=== PATIENT | female | born 1975 | race Caucasian/White ===

== ENCOUNTER 2016-09-27 06:15 | Emergency (ER) | payer MEDICARE, OTHER ==
[~2016-09-27] VITALS: Ht 160 cm; Wt 54.0 kg
[~2016-09-27 06:15] MED LIST: CALNTAB PO; LISI-515 PO; OMEP20TA PO; VITA100T2 PO
[2016-09-27] MEDS ORDERED: CLIN1CAP5 PO (07:27)
--- NOTE | 2016-09-27 07:28 | PD ---
HPI Chief Complaint: Bite or Sting Time Seen by Provider: 07:24 Travel History International Travel<30 days: No Contact w/Intl Traveler<30days: No Traveled to known affect area: No History of Present Illness HPI 41-year-old female presents to the emergency Department with complaint of a possible bug bite to her left labia that she noticed at approximately 2 AM this morning. Denies fever, chills, nausea, vomiting. Denies dysuria, hematuria, urgency, frequency. Denies vaginal discharge, odor, itch, lesions. Denies exposure to STDs. Has not taken any medications or tried any treatments to alleviate her symptoms. Constant pain. No known relieving factors. Allergies to aspirin, doxycycline, NSAIDs, sulfa. History of hypertension. No other modifying factors or associated signs and symptoms. PFSH Past Medical History Asthma: No Anxiety: No Depression: Yes Heart Rhythm Problems: No Cancer: Yes (cervical ca) Cardiovascular Problems: No High Cholesterol: No Chemotherapy: No Chest Pain: No Congestive Heart Failure: No COPD: No Diabetes: No Endocrine: No Gastrointestinal Disorders: Yes (gerd) Genitourinary: No Hepatitis: No Hiatal Hernia: No Hypertension: Yes Immune Disorder: No Musculoskeletal: No Neurologic: No Psychiatric: No Reproductive: Yes (ENDOMETRIOSIS,FIBROIDS TUMOR) Respiratory: No Immunizations Current: No Radiation Therapy: No Sleep Apnea: No Thyroid Disease: No : 5 Para: 6 Ovarian Cysts: Yes (BEAN.) Dilation and Curettage (D&C): Yes (06/2012) Past Surgical History Abdominal Surgery: Yes (APPY) AICD: No Appendectomy: Yes Gynecologic Surgery: Yes (LAPAROSCOPIES. c section) Hysterectomy: Yes Joint Replacement: No Oral Surgery: Yes (T & A) Pacemaker: No Tonsillectomy: Yes Other Surgery: Yes (d&c,cervical ca, hysterectomy) Social History Alcohol Use: Yes (occas) Tobacco Use: Yes (1PPD) Substance Use: Yes Allergies-Medications (Allergen,Severity, Reaction): Coded Allergies: Aspirin (Verified Allergy, Severe, BLEEDING,HIVES, 06/03/16) Doxycycline (Verified Allergy, Severe, Nausea/Vomiting, 06/03/16) Nonsteroidal Anti-Inflammatory Agts (Verified Allergy, Severe, Bleeding, 06/03/16) Sulfa (Verified Allergy, Severe, BLEEDING,HIVES, 06/03/16) Reported Meds & Prescriptions Reported Meds & Active Scripts Active Clindamycin (Clindamycin HCl) 150 Mg Cap 450 Mg PO Q6H 10 Days Vitamin B-1 (Thiamine HCl) 100 Mg Tab 100 Mg PO DAILY 5 Days Reported [place] ( Vitamin) 1 Tab Tab 1 Tab PO DAILY Omeprazole 20 Mg Tab 20 Mg PO DAILY Lisinopril 20 Mg Tab 20 Mg PO DAILY Review of Systems Except as stated in HPI: all other systems reviewed are Neg Physical Exam Narrative GENERAL: Well-nourished, well-developed patient, in no acute distress; afebrile , nontoxic-appearing SKIN: There is an indurated area to the left labia majora which measures about 1.5 cm in diameter. It is fluctuant but there is no pointing or drainage. There is a zone of inflammation around it but no lymphangitis. No groin lymphadenopathy. HEAD: Atraumatic. Normocephalic. EYES: Pupils equal and round. No scleral icterus. No injection or drainage. ENT: Mucosa pink and moist. Airway patent. NECK: Trachea midline. CARDIOVASCULAR: Regular rate. RESPIRATORY: No accessory muscle use. GASTROINTESTINAL: Flat. MUSCULOSKELETAL: No obvious deformities. No clubbing. No cyanosis. No edema. NEUROLOGICAL: Awake and alert. Oriented 3. No obvious cranial nerve deficits. Motor grossly within normal limits. Normal speech. PSYCHIATRIC: Appropriate mood and affect; insight and judgment normal. Data Data Orders Lidocaine 1% Inj (50 Ml) (Xylocaine 1% I (09/27/16 07:30) Acetaminophen (Tylenol) (09/27/16 08:15) MDM Medical Decision Making Medical Screen Exam Complete: Yes Emergency Medical Condition: Yes Medical Record Reviewed: Yes Differential Diagnosis Bartholin abscess, vaginal abscess, labial abscess, folliculitis Narrative Course 41-year-old female with an abscess of the left genital labia majora. Patient is afebrile and nontoxic-appearing. See my procedure note for incision and drainage. Wound culture pending. Tylenol administered in the ER. Clindamycin prescribed for home. Instructed patient to follow up with gynecology. Patient verbalizes understanding and agreement with treatment plan. Patient is medically cleared and stable for discharge. Discussed reasons to return to the emergency department. Instructed patient to follow up with primary care provider. Patient agrees with treatment plan. The patients vital signs are stable and the patient is stable for outpatient follow-up and treatment. Patient discharged home, stable and in no acute distress. Procedures Procedure Narrative INCISION AND DRAINAGE OF ABSCESS: The area was prepped and was sterilely draped. A subcutaneous wheal of 1 % Xylocaine with a total number 2 mL was used to anesthetize the area properly. A number 11 scalpel was used to make a 0.5 -cm incision across the area of the abscess. The abscess was drained, complex loculations were broken down, and irrigated with normal saline. Cultures were obtained. Quarter inch iodoform packing was placed in the wound. Sterile dressing applied. Patient advised to have packing removed in two days. Diagnosis Primary Impression: Abscess of left genital labia Referrals: Primary Care Physician Patient Instructions: Abscess (ED), Abscess Follow-up (ED), Abscess Incision and Drainage (ED), General Instructions Departure Forms: Tests/Procedures, Work Release Enter return to work date: Sep 28, 2016 Additional Instructions: Complete full course of antibiotics Warm compresses to the affected area Keep area clean and dry Tylenol as directed and as needed for pain and inflammation Return to the emergency department, follow-up with primary care provider or follow up with cover inspector in 48 hours for packing removal Follow-up with primary care provider Return to emergency department immediately with worsening of symptoms Med/Other Pt SpecificInfo: Prescription(s) given Scripts Clindamycin 150 Mg [id number] Mg PO Q6H 10 Days Ref 0 Prov:Veronica Altamirano 09/27/16 Disposition: 01 DISCHARGE HOME Condition: Stable Veronica Altamirano Sep 27, 2016 07:28
[2016-09-27] MEDS ORDERED: LIDOCAINE HCL 1% 50 ML VIAL INFIL ONE (07:30)
[2016-09-27] MEDS ORDERED: ACETAMINOPHEN 325 MG TAB PO ONE (08:15)
[2016-09-27 08:28] VITALS: BP 148/90; PULSE 88; RESP 18; TEMP 98.2; O2SAT 97
== END 2016-09-27 08:45 | disposition home or self-care (01) ==
LOC: NEPB 06:15
DX: N76.4 Abscess of vulva (principal); B95.62 Methicillin resistant Staphylococcus aureus infection as the cause of diseases classified elsewhere
CPT/HCPCS: 10061; 86403; 87070; 87077; 87186

== ENCOUNTER 2017-02-08 02:37 | Emergency (ER) | payer MEDICARE, OTHER ==
[~2017-02-08] VITALS: Ht 160 cm; Wt 62.0 kg
[~2017-02-08 02:37] MED LIST changes: -CALNTAB PO; +CLIN1CAP5 PO; -OMEP20TA PO; -VITA100T2 PO
[2017-02-08 02:42] VITALS: BP 149/103; PULSE 98; RESP 16; TEMP 98; O2SAT 99
[2017-02-08] MEDS ORDERED: DULO20 PO (02:51)
[2017-02-08] MEDS ORDERED: diphenhydrAMINE HCL 50 MG CAP PO ONE (03:00)
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
== END 2017-02-08 03:40 | disposition home or self-care (01) ==
LOC: NEPD 02:37
DX: R20.8 Other disturbances of skin sensation (principal); I10 Essential (primary) hypertension; Z85.41 Personal history of malignant neoplasm of cervix uteri; K21.9 Gastro-esophageal reflux disease without esophagitis; F17.210 Nicotine dependence, cigarettes, uncomplicated
CPT/HCPCS: 99282

== ENCOUNTER 2017-03-12 00:30 | Emergency (ER) | payer MEDICARE, OTHER ==
[~2017-03-12] VITALS: Ht 157.5 cm; Wt 56.8 kg
[~2017-03-12 00:30] MED LIST changes: -CLIN1CAP5 PO; +DULO20 PO
[2017-03-12 00:41] VITALS: BP 166/177; PULSE 120; RESP 22; TEMP 98.7; O2SAT 100
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
[2017-03-12] MEDS ORDERED: HALOPERIDOL LACTATE 5 MG/ML AMP IV PUSH ONE (01:15)
[2017-03-12 01:54] LABS: AUTOMATED NEUTROPHIL # 5.3 TH/MM3 (1.8-7.7); BASOPHIL # 0.1 TH/MM3 (0-0.2); BASOPHIL % 1.1 % (0.0-2.0); EOSINOPHIL # 0.3 TH/MM3 (0-0.4); EOSINOPHIL % 2.9 % (0.0-4.0); HEMATOCRIT 40.3 % (35.0-46.0); HEMO FLAGS DIFF FINAL; LYMPH % 35.1 % (9.0-44.0); LYMPHOCYTE # 3.4 TH/MM3 (1.0-4.8); MEAN CELL VOLUME 95.4 FL (80.0-100.0); MEAN CORPUSCULAR HEMOGLOBIN 32.9 PG (27.0-34.0); MEAN CORPUSCULAR HGB CONC 34.5 % (32.0-36.0); MONO % 6.2 % (0.0-8.0); NEUT % 54.7 % (16.0-70.0); PLATELET COUNT 378 TH/MM3 (150-450); RED BLOOD COUNT 4.23 MIL/MM3 (4.00-5.30); RED CELL DISTRIBUTION WIDTH 12.7 % (11.6-17.2); WHITE BLOOD COUNT 9.7 TH/MM3 (4.0-11.0)
[2017-03-12 02:01] LABS: ANION GAP 9 MEQ/L (5-15); BICARBONATE 24.6 MEQ/L (21.0-32.0); BLOOD UREA NITROGEN 7 MG/DL (7-18); CHLORIDE 102 MEQ/L (98-107); GLOMERULAR FILTRATION RATE 71 ML/MIN (>89); POTASSIUM 3.2 MEQ/L (3.5-5.1); SODIUM (NA) 136 MEQ/L (136-145)
[2017-03-12 02:02] LABS: ALCOHOL LESS THAN 3 MG/DL (0-5)
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
[2017-03-12] MEDS ORDERED: POTASSIUM CHLORIDE 20 MEQ CONTROLLED RELEASE TAB PO ONE (02:45)
[2017-03-12 07:50] VITALS: BP 108/72; PULSE 86; RESP 20; TEMP 97.8; O2SAT 98
[2017-03-12 10:18] VITALS: BP 113/76; PULSE 69; RESP 16
[2017-03-12 15:48] VITALS: BP 120/80; PULSE 88; RESP 16
[2017-03-12 23:08] VITALS: BP 107/70; PULSE 101; RESP 16; TEMP 97.1; O2SAT 99
[2017-03-13 02:12] VITALS: BP 106/71; PULSE 71; RESP 16; TEMP 98.2; O2SAT 99
[2017-03-13 05:04] VITALS: BP 119/76; PULSE 66; RESP 16; TEMP 97.2; O2SAT 98
[2017-03-13 11:36] VITALS: BP 94/76; PULSE 76; RESP 18; O2SAT 99
--- NOTE | 2017-03-13 13:11 | PD ---
History of Present Illness Chief Complaint: Psychiatric Symptoms Time Seen by Provider: 13:00 Travel History International Travel<30 Days: No Contact w/Intl Traveler<30days: No Known affected area: No Legal Status Legal Status: Garcia Act Garcia Act Signed By: Lisa Duggan History of Present Illness: 41-year-old female presented under a Garcia act last night. According to the Garcia act she was making repeated 911 calls and making nonsensical statements. She talked about losing her head and being on a dirt road sleeping with other people. She also reported she wanted to turn herself in before she kills her ex -. She was rambling about a friend's boyfriend being a female. She made comments about her children being missing. Patient was noted to be positive for amphetamines and positive for cocaine on toxicology screen. She is no longer intoxicated. Her children were taken away from her due to her drug abuse. Patient lives locally and she has a home to go back to. She states she receives a check from Social Security. She has been treated at [facility] but does not want to return there and does not wish to take medications. At this time she is verbally tom for safety and states she has no suicidal or homicidal ideation, plan or intent. She is not making psychotic statements. She would like to go home and this physician does not feel she meets criteria for Garcia act or involuntary psychiatric hospitalization at this time. PFSH Past Medical History Asthma: No Anxiety: No Depression: Yes Heart Rhythm Problems: No Cancer: Yes (cervical ca) Cardiovascular Problems: Yes (HTN) High Cholesterol: No Chemotherapy: No Chest Pain: No Congestive Heart Failure: No COPD: No Diabetes: No Diminished Hearing: No Endocrine: No Gastrointestinal Disorders: Yes (gerd) Genitourinary: No Hepatitis: No Hiatal Hernia: No Hypertension: Yes Immune Disorder: No Medical other: Yes (CHR. HEADACHES DUE TO TRAUMA r eye twitching with pain) Musculoskeletal: No Neurologic: No Psychiatric: No Reproductive: Yes (ENDOMETRIOSIS,FIBROIDS TUMOR) Respiratory: No Immunizations Current: No Radiation Therapy: No Sleep Apnea: No Thyroid Disease: No Tetanus Vaccination: < 5 Years ?: Not : 5 Para: 6 Ovarian Cysts: Yes (BEAN.) Dilation and Curettage (D&C): Yes (06/2012) Past Surgical History Surgical History: No Previous Surgery Abdominal Surgery: Yes (EX LAP) AICD: No Appendectomy: Yes Gynecologic Surgery: Yes (LAPAROSCOPIES. c section) Hysterectomy: Yes Joint Replacement: No Oral Surgery: Yes (T & A) Pacemaker: No Tonsillectomy: Yes Other Surgery: Yes (d&c,cervical ca, hysterectomy) Psychiatric History Psychiatric History Hx Psychiatric Treatment: PATIENT WAS LAST ADMITTED TO [facility] FROM 05/07/16 TO 05/09/16 FOR DRUG INDUCED MOOD DISORDER. Patient's [place] problem appears to be drug abuse at this time. History of Inpatient Treatment: Yes Guns or firearms in home: No Social History Hx Alcohol Use: Yes Hx Tobacco Use: Yes Hx Substance Use: Yes Substance Use Type: Amphetamines-Stimulants, Cocaine Hx of Substance Use Treatment: Yes Allergies-Medications (Allergen,Severity, Reaction): Coded Allergies: Sulfa (Sulfonamide Antibiotics) (Unverified Allergy, Severe, BLEEDING, HIVES, 02/14/17) aspirin (Unverified Allergy, Severe, BLEEDING,HIVES, 02/14/17) diclofenac (Unverified Allergy, Severe, Bleeding, 02/14/17) doxycycline (Unverified Allergy, Severe, Nausea/Vomiting, 02/14/17) etodolac (Unverified Allergy, Severe, Bleeding, 02/14/17) flurbiprofen (Unverified Allergy, Severe, Bleeding, 02/14/17) ibuprofen (Unverified Allergy, Severe, Bleeding, 02/14/17) indomethacin (Unverified Allergy, Severe, Bleeding, 02/14/17) ketoprofen (Unverified Allergy, Severe, Bleeding, 02/14/17) ketorolac (Unverified Allergy, Severe, Bleeding, 02/14/17) naproxen (Unverified Allergy, Severe, Bleeding, 02/14/17) oxaprozin (Unverified Allergy, Severe, Bleeding, 02/14/17) *MDRO Multi-Drug Resistant Organism (Verified Adverse Reaction, Unknown, ) 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 Reported Meds & Prescriptions Reported Meds & Active Scripts Active Reported Cymbalta DR (Duloxetine HCl) 20 Mg Capdr 20 Mg PO DAILY Lisinopril 20 Mg Tab 20 Mg PO DAILY Review of Systems Except as stated in HPI: all other systems reviewed are Neg Exam Alert: Yes [place]: Person, Place, Date, Situation Mood: Calm Affect: Appropriate Speech: Clear, Logical, Fast Eye Contact: Normal Memory Intact: Immediate, Recent, Remote Insight/Judgement Adequate MDM Medical Decision Making Medical Record Reviewed: Yes Assessment/Plan Patient seen at bedside, medical record reviewed and case discussed with nurse. At this time the patient does not show significant objective clinical signs of psychosis. She is most likely not intoxicated at this point. She is verbally tom for safety and denies any homicidal or suicidal ideation, plan or intent. She has a place to go home to and she does not qualify for Garcia act or involuntary hospitalization in my opinion. She would like to return to her home. She was given a referral to [facility] for drug abuse. Orders Orders Diet Regular Basic (03/13/17 Breakfast) Diet Regular Basic (03/13/17 Lunch) Diet Regular Basic (03/13/17 Dinner) Results Vital Signs Date Time Temp Pulse Resp B/P (MAP) Pulse Ox O2 Delivery O2 Flow Rate FiO2 03/13/17 11:36 76 18 94/76 (82) 99 Room Air 03/13/17 05:04 97.2 66 16 119/76 (90) 98 Room Air 03/13/17 02:12 98.2 71 16 106/71 (83) 99 Room Air 03/12/17 23:08 97.1 101 16 107/70 (82) 99 Room Air 03/12/17 15:48 88 16 120/80 (93) Diagnosis Primary Impression: Cocaine abuse Condition: Stable Severiano Conley MD Mar 13, 2017 13:11
--- NOTE | 2017-03-13 13:29 | PD ---
Physical Exam Time Seen by Provider: 13:[address] Conley has evaluated this patient, which the Garcia act and the patient will be discharged home. Data Data Last Documented VS Vital Signs Date Time Temp Pulse Resp B/P (MAP) Pulse Ox O2 Delivery O2 Flow Rate FiO2 03/13/17 11:36 76 18 94/76 (82) 99 Room Air 03/13/17 05:04 97.2 Orders Orders Complete Blood Count With Diff (03/12/17 00:46) Basic Metabolic Panel (Bmp) (03/12/17 00:46) Psych Screen (03/12/17 00:46) Drug Screen, Random Urine (03/12/17 00:46) Alcohol (Ethanol) (03/12/17 00:46) Ed Urine Pregnancytest Poc (03/12/17 01:08) Iv Access Insert/Monitor (03/12/17 01:08) Haloperidol Inj (Haldol Inj) (03/12/17 01:15) Potassium Chloride (Kcl) (03/12/17 02:45) Diet Regular Basic (03/12/17 Breakfast) Diet Regular Basic (03/12/17 Lunch) Diet Regular Basic (03/12/17 Dinner) Diet Regular Basic (03/13/17 Breakfast) Diet Regular Basic (03/13/17 Lunch) Diet Regular Basic (03/13/17 Dinner) Labs Laboratory Tests Test 03/12/17 01:00 03/12/17 01:10 Urine Opiates Screen NEG Urine Barbiturates Screen NEG Urine Amphetamines Screen POS Urine Benzodiazepines Screen NEG Urine Cocaine Screen POS Urine Cannabinoids Screen NEG White Blood Count 9.7 TH/MM3 Red Blood Count 4.23 MIL/MM3 Hemoglobin 13.9 GM/DL Hematocrit 40.3 % Mean Corpuscular Volume 95.4 FL Mean Corpuscular Hemoglobin 32.9 PG Mean Corpuscular Hemoglobin Concent 34.5 % Red Cell Distribution Width 12.7 % Platelet Count 378 TH/MM3 Mean Platelet Volume 6.6 FL Neutrophils (%) (Auto) 54.7 % Lymphocytes (%) (Auto) 35.1 % Monocytes (%) (Auto) 6.2 % Eosinophils (%) (Auto) 2.9 % Basophils (%) (Auto) 1.1 % Neutrophils # (Auto) 5.3 TH/MM3 Lymphocytes # (Auto) 3.4 TH/MM3 Monocytes # (Auto) 0.6 TH/MM3 Eosinophils # (Auto) 0.3 TH/MM3 Basophils # (Auto) 0.1 TH/MM3 CBC Comment DIFF FINAL Differential Comment Blood Urea Nitrogen 7 MG/DL Creatinine 0.89 MG/DL Random Glucose 129 MG/DL Calcium Level 9.2 MG/DL Sodium Level 136 MEQ/L Potassium Level 3.2 MEQ/L Chloride Level 102 MEQ/L Carbon Dioxide Level 24.6 MEQ/L Anion Gap 9 MEQ/L Estimat Glomerular Filtration Rate 71 ML/MIN Ethyl Alcohol Level LESS THAN 3 MG/DL MDM Supervised Visit with [place]: No Narrative Course Dr. Conley has evaluated this patient, which the Garcia act and the patient will be discharged home. Patient contract safety. Denies suicidal or homicidal ideations. The patient be provided information to follow up with [facility] outpatient. Patient has friends and family for support. Patient is medically cleared for discharge. Diagnosis Primary Impression: Cocaine abuse Referrals: Primary Care Physician Patient Instructions: Cocaine Abuse (ED), General Instructions Additional Instruction: Contract safety to your self and others Stop using cocaine Follow-up with psychiatry Follow-up with primary care provider Follow-up with [facility] Return to the emergency department immediately with worsening of symptoms Med/Other Pt SpecificInfo: No Meds Exist/No RX given Disposition: 01 DISCHARGE HOME Condition: Stable Veronica Altamirano Mar 13, 2017 13:29
== END 2017-03-13 14:45 | disposition home or self-care (01) ==
LOC: NEPD 00:30 → NEPJ 03-13 14:45
DX: F14.159 Cocaine abuse with cocaine-induced psychotic disorder, unspecified (principal); F15.959 Other stimulant use, unspecified with stimulant-induced psychotic disorder, unspecified; I10 Essential (primary) hypertension; Z72.0 Tobacco use; Z79.899 Other long term (current) drug therapy
CPT/HCPCS: 80048; 80307; 84703; 85025; 96374; 99284; J1630

== ENCOUNTER 2017-06-09 10:00 | Emergency (ER) | payer MEDICARE, MEDICAID ==
[~2017-06-09] VITALS: Ht 157.5 cm; Wt 63.0 kg
[2017-06-09 10:01] VITALS: BP 143/86; PULSE 105; RESP 20; TEMP 99; O2SAT 99
[2017-06-09] MEDS ORDERED: SODIUM CHLOR 0.9% 1000 ML INJ 1,000 ML IV SCH (10:27)
[2017-06-09] MEDS ORDERED: SODIUM CHLOR 0.9% 1000 ML INJ 1,000 ML IV ONE (10:30)
[2017-06-09] MEDS ORDERED: ONDANSETRON HCL 4 MG/2 ML VIAL IVP ONE (10:30)
[2017-06-09] MEDS ORDERED: SODIUM CHLORIDE 0.9% FLUSH 10 ML FLUSH IVF PRN (10:30)
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
[2017-06-09] MEDS ORDERED: DEXAMETHASONE SOD PHOS 20 MG/5 ML VIAL IV PUSH ONE (10:45)
--- NOTE | 2017-06-09 11:04 | RADRPT ---
EXAM DATE/TIME: 06/09/2017 10:38 [facility] COMPARISON: CHEST SINGLE AP, May 06, 2016, 11:04. INDICATIONS : Cough and chest pain x 4 days. MEDICAL HISTORY : SURGICAL HISTORY : Hysterectomy. ENCOUNTER: Initial ACUITY: 1 day PAIN SCORE: 6/10 LOCATION: Bilateral chest FINDINGS: Portable AP view of the chest demonstrates a normal-sized cardiac silhouette. No effusion, consolidat ion, or pneumothorax is visualized. The bones and soft tissues demonstrate no acute abnormality. CONCLUSION: No acute cardiopulmonary abnormality is identified. Marcel Casillas MD on June 09, 2017 at 11:01 Board Certified Radiologist. This report was verified electronically.
[2017-06-09 11:10] LABS: BASOPHIL # 0.1 TH/MM3 (0-0.2); BASOPHIL % 0.4 % (0.0-2.0); EOSINOPHIL # 0.1 TH/MM3 (0-0.4); EOSINOPHIL % 0.8 % (0.0-4.0); HEMATOCRIT 38.1 % (35.0-46.0); HEMO FLAGS DIFF FINAL; LYMPH % 13.5 % (9.0-44.0); LYMPHOCYTE # 2.1 TH/MM3 (1.0-4.8); MEAN CELL VOLUME 96.3 FL (80.0-100.0); MEAN CORPUSCULAR HEMOGLOBIN 33.7 PG (27.0-34.0); MONO % 6.7 % (0.0-8.0); NEUT % 78.6 % (16.0-70.0); PLATELET COUNT 295 TH/MM3 (150-450); RED BLOOD COUNT 3.96 MIL/MM3 (4.00-5.30); WHITE BLOOD COUNT 15.2 TH/MM3 (4.0-11.0)
[2017-06-09 11:19] VITALS: O2SAT 100
[2017-06-09 11:24] LABS: BICARBONATE 28.9 MEQ/L (21.0-32.0); POTASSIUM 3.3 MEQ/L (3.5-5.1)
[2017-06-09 11:59] VITALS: BP 129/86; PULSE 92; RESP 17; O2SAT 100
[2017-06-09 11:59] LABS: BLOOD, URINE NEG (NEG); COMMENT (UR) CULT NOT INDICATED; CULTURE IF INDICATED CULT NOT INDICATED; GLUCOSE,URINE 70 mg/dL (NEG); HYALINE CAST, URINE 2 /lpf (RARE); KETONE, URINE NEG (NEG); MUCUS URINE MANY /lpf (OCC); NITRITE,URINE NEG (NEG); PH, URINE 6.5 (5.0-8.5); SQUAMOUS EPITHELIAL CELL URINE 1 /hpf (0-5); URINE COLOR YELLOW (YELLW/STRAW)
[2017-06-09] MEDS ORDERED: POTASSIUM CHLORIDE 10 MEQ CONTROLLED RELEASE TAB PO ONE (12:45)
--- NOTE | 2017-06-09 14:20 | EKG ---
Date Performed: 06/09/2017 Time Performed: 11:06:37 PTAGE: 42 years EKG: Sinus rhythm NORMAL ECG No significant change from prior electrocardiogram. PREVIOUS TRACING : 05/06/2016 05.30 DOCTOR: Andrew Matias Interpretating Date/Time 06/09/2017 14:19:25
== END 2017-06-09 13:17 | disposition home or self-care (01) ==
LOC: NEPD 10:00
DX: B34.9 Viral infection, unspecified (principal); I10 Essential (primary) hypertension; K21.9 Gastro-esophageal reflux disease without esophagitis; F32.9 Major depressive disorder, single episode, unspecified; F17.200 Nicotine dependence, unspecified, uncomplicated; Z88.2 Allergy status to sulfonamides; Z86.19 Personal history of other infectious and parasitic diseases; Z88.6 Allergy status to analgesic agent; Z88.8 Allergy status to other drugs, medicaments and biological substances
CPT/HCPCS: 71010; 80048; 81001; 85025; 87804; 93005; 96361; 96374; 96375; 99285; J1100; J2405; J7030

== ENCOUNTER 2017-06-25 16:32 | Emergency (ER) | payer MEDICARE, MEDICAID ==
[2017-06-25 16:40] VITALS: BP 157/101; PULSE 130; RESP 20; TEMP 98.2; O2SAT 100
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
== END 2017-06-25 18:25 | disposition home or self-care (01) ==
LOC: NEPD 16:32
DX: Z00.00 Encounter for general adult medical examination without abnormal findings (principal)
CPT/HCPCS: 99283

== ENCOUNTER 2017-09-05 20:13 | Emergency (ER) | payer MEDICARE, OTHER ==
[2017-09-05] MEDS ORDERED: LORazepam 2 MG/ML VIAL IM ONE (20:45)
[2017-09-05] MEDS ORDERED: HALOPERIDOL LACTATE 5 MG/ML AMP IM ONE (20:45)
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
[2017-09-05 20:54] VITALS: BP 185/117; PULSE 112; RESP 16; TEMP 98.8; O2SAT 100
[2017-09-05 22:08] LABS: BASOPHIL # 0.1 TH/MM3 (0-0.2); BASOPHIL % 1.3 % (0.0-2.0); EOSINOPHIL # 0.2 TH/MM3 (0-0.4); EOSINOPHIL % 2.2 % (0.0-4.0); HEMATOCRIT 42.1 % (35.0-46.0); HEMOGLOBIN 15.1 GM/DL (11.6-15.3); LYMPH % 34.7 % (9.0-44.0); LYMPHOCYTE # 3.2 TH/MM3 (1.0-4.8); MEAN CELL VOLUME 92.6 FL (80.0-100.0); MEAN CORPUSCULAR HEMOGLOBIN 33.3 PG (27.0-34.0); MEAN CORPUSCULAR HGB CONC 35.9 % (32.0-36.0); MEAN PLATELET VOLUME 7.1 FL (7.0-11.0); MONO % 6.6 % (0.0-8.0); MONOCYTE # 0.6 TH/MM3 (0-0.9); NEUT % 55.2 % (16.0-70.0); PLATELET COUNT 400 TH/MM3 (150-450); RED BLOOD COUNT 4.55 MIL/MM3 (4.00-5.30); RED CELL DISTRIBUTION WIDTH 12.8 % (11.6-17.2); WHITE BLOOD COUNT 9.1 TH/MM3 (4.0-11.0)
[2017-09-05 22:20] LABS: ALBUMIN 4.4 GM/DL (3.4-5.0); AST (GOT) 67 U/L (15-37); BICARBONATE 26.9 MEQ/L (21.0-32.0); BLOOD UREA NITROGEN 13 MG/DL (7-18); CALCIUM 9.3 MG/DL (8.5-10.1); CHLORIDE 101 MEQ/L (98-107); CREATININE 0.92 MG/DL (0.50-1.00); GLOMERULAR FILTRATION RATE 68 ML/MIN (>89); GLUCOSE,RANDOM 88 MG/DL (74-106); SODIUM (NA) 140 MEQ/L (136-145)
[2017-09-05 22:21] LABS: ALT (GPT) 82 U/L (10-53)
[2017-09-05 22:31] LABS: ALKALINE PHOSPHATASE 117 U/L (45-117); TOTAL BILIRUBIN ADULT 0.6 MG/DL (0.2-1.0); TOTAL PROTEIN 8.4 GM/DL (6.4-8.2)
[2017-09-05] MEDS ORDERED: POTASSIUM CHLORIDE 20 MEQ CONTROLLED RELEASE TAB PO ONE (23:15)
[2017-09-06 02:32] VITALS: BP 100/55; PULSE 75; RESP 18; O2SAT 96
[2017-09-06 10:28] VITALS: BP 117/77; PULSE 71; RESP 16; O2SAT 98
--- NOTE | 2017-09-06 15:03 | PD.PSY.CON ---
Provisional Diagnosis Admission Date Date of consultation 09/06/2017 [place] I. 1. Amphetamine abuse with intoxication, intoxication now resolved [place] II. Deferred History of Present Illness Service Psychiatry Consult Requested By Emergency department Reason for Consult Garcia act Primary Care Physician Unknown HPI Ms. Mcmullen is a 42-year-old female with a history of substance use issues who presents under a Garcia act by law enforcement alleging that the patient told officers that she heard the screams of her daughters and was searching for them. Apparently, at one point the patient told the officers that she wanted "to jump off a bridge to kill myself." Of note, the patient's urine toxicology was positive for amphetamines on presentation here. Patient was apparently somewhat agitated in her acutely intoxicated state and was medicated overnight with Haldol and Ativan IM. Reviewing the electronic medical record, I note that the patient was seen most recently in consultation by Dr. Conley last March with a diagnosis of cocaine abuse. Patient seen and examined. Chart reviewed. Case discussed with nursing staff. There has been no evidence of any suicidality or homicidality while the patient has been under observation in the J pod. On my examination this afternoon, the patient is clinically sober. She denies any suicidal or homicidal ideation, intent or plan and contracts for safety. Mood is "fine" and affect is somewhat dysphoric but not severely depressed. No depressive or hypomanic/manic symptoms in evidence. She denies any audiovisual hallucinations. I can elicit no delusional material. There is no evidence of any impairment in reality construction at this point. The remainder of the psychiatric ROS is negative. The patient has no physical complaints. She is requesting discharge from the emergency room this afternoon. Past psychiatric history: The patient has a history of substance abuse issues. She is not presently under the care of an outpatient psychiatrist but is agreeable to accepting a referral today for outpatient psychiatric services. Her most recent psychiatric admission was here at [facility] last year. She reports 1 previous suicide attempt by overdose on pills. Family history: Patient reports that she is unsure of her family psychiatric history. Chemical dependency history: Patient reports that she uses methamphetamine daily. No other substance use reported presently although the patient has a previous diagnosis of cocaine abuse. Social history: Patient lives in a motel. She is single with no children. Highest level of education is escobar in high school. Not presently working. Denies any history. Denies any legal history. Denies any access to guns or firearms. No particular mormonism or spiritual beliefs. Review of Systems Except as stated in HPI: all other systems reviewed are Neg Past Family Social History Coded Allergies: Sulfa (Sulfonamide Antibiotics) (Unverified Allergy, Severe, BLEEDING, HIVES, 09/05/17) aspirin (Unverified Allergy, Severe, BLEEDING,HIVES, 09/05/17) diclofenac (Unverified Allergy, Severe, Bleeding, 09/05/17) doxycycline (Unverified Allergy, Severe, Nausea/Vomiting, 09/05/17) etodolac (Unverified Allergy, Severe, Bleeding, 09/05/17) flurbiprofen (Unverified Allergy, Severe, Bleeding, 09/05/17) ibuprofen (Unverified Allergy, Severe, Bleeding, 09/05/17) indomethacin (Unverified Allergy, Severe, Bleeding, 09/05/17) ketoprofen (Unverified Allergy, Severe, Bleeding, 09/05/17) ketorolac (Unverified Allergy, Severe, Bleeding, 09/05/17) naproxen (Unverified Allergy, Severe, Bleeding, 09/05/17) oxaprozin (Unverified Allergy, Severe, Bleeding, 09/05/17) *MDRO Multi-Drug Resistant Organism (Verified Adverse Reaction, Unknown, ) 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 Past Medical History See electronic medical record No Active Prescriptions or Reported Meds Patient's Strengths (min. 2) Able to access clinical care. Verbally fluent. Physical Exam Physical exam completed by ED provider. On my examination today, the patient appears to be in no acute physical distress. No motor abnormalities noted. No signs of intoxication or withdrawal noted. Labs and vitals reviewed: Vital Signs Vital Signs Date Time Temp Pulse Resp B/P (MAP) Pulse Ox O2 Delivery O2 Flow Rate FiO2 09/06/17 10:28 71 16 117/77 (90) 98 Room Air 09/05/17 20:54 98.8 Lab Results Test 09/05/17 21:25 White Blood Count 9.1 TH/MM3 Red Blood Count 4.55 MIL/MM3 Hemoglobin 15.1 GM/DL Hematocrit 42.1 % Mean Corpuscular Volume 92.6 FL Mean Corpuscular Hemoglobin 33.3 PG Mean Corpuscular Hemoglobin Concent 35.9 % Red Cell Distribution Width 12.8 % Platelet Count 400 TH/MM3 Mean Platelet Volume 7.1 FL Neutrophils (%) (Auto) 55.2 % Lymphocytes (%) (Auto) 34.7 % Monocytes (%) (Auto) 6.6 % Eosinophils (%) (Auto) 2.2 % Basophils (%) (Auto) 1.3 % Neutrophils # (Auto) 5.0 TH/MM3 Lymphocytes # (Auto) 3.2 TH/MM3 Monocytes # (Auto) 0.6 TH/MM3 Eosinophils # (Auto) 0.2 TH/MM3 Basophils # (Auto) 0.1 TH/MM3 CBC Comment DIFF FINAL Differential Comment Blood Urea Nitrogen 13 MG/DL Creatinine 0.92 MG/DL Random Glucose 88 MG/DL Total Protein 8.4 GM/DL Albumin 4.4 GM/DL Calcium Level 9.3 MG/DL Alkaline Phosphatase 117 U/L Aspartate Amino Transf (AST/SGOT) 67 U/L Alanine Aminotransferase (ALT/SGPT) 82 U/L Total Bilirubin 0.6 MG/DL Sodium Level 140 MEQ/L Potassium Level 3.1 MEQ/L Chloride Level 101 MEQ/L Carbon Dioxide Level 26.9 MEQ/L Anion Gap 12 MEQ/L Estimat Glomerular Filtration Rate 68 ML/MIN Thyroid Stimulating Hormone 3rd Gen 1.910 uIU/ML Urine Opiates Screen NEG Urine Barbiturates Screen NEG Urine Amphetamines Screen POS Urine Benzodiazepines Screen NEG Urine Cocaine Screen NEG Urine Cannabinoids Screen NEG Ethyl Alcohol Level LESS THAN 3 MG/DL Mental Status Examination Appearance: Disheveled (Maintaining basic hygiene) Consciousness: Alert Orientation: x4 Motor Activity: Other (No motor abnormalities noted) Speech: Unremarkable Language: Adequate Fund of Knowledge: Adequate Attention and Concentration: Adequate Memory: Unremarkable Mood: Appropriate ("fine") Affect: Appropriate (mildly dysphoric) Thought Process & Associations: Intact, Logical, Goal directed, Linear Thought Content: Appropriate Hallucination Type: None Delusion Type: None Suicidal Ideation: No Suicidal Plan: No Suicidal Intention: No Homicidal Ideation: No Homicidal Plan: No Homicidal Intention: No Mental Status Exam Remarks Insight and judgment are likely chronically fair to poor Assessment & Plan Problem List: (1) Amphetamine abuse ICD Codes: F15.10 - Other stimulant abuse, uncomplicated Assessment & Plan 42-year-old female with psychiatric history as detailed above who presents under Garcia act from law enforcement. Patient was intoxicated with methamphetamine yesterday, and report in the Garcia act is reflective of the intoxicated state. Now that she is clinically sober, she is denying suicidal or homicidal ideation. She is tom for safety. There is no evidence of any psychosis. There is no evidence of any severe self-care deficit. There is no evidence of any mental illness as defined under the Garcia act. Patient does have substance use issues. Synthesizing this information, I hardwood sawyer that the patient does not presently meet the Garcia act criteria. I have lifted the Garcia act. Patient is psychiatrically clear for discharge from the emergency department. I have instructed the nurse to provide the patient with outpatient mental health and chemical dependency referral. I have recommended to the patient that she follow up with outpatient mental health and chemical dependency resources. I have counseled the patient to abstain from substances of abuse. I have counseled the patient regarding warning signs for need to return to the psychiatric emergency room as part of a general safety plan. Thank you very much for this consultation. Request Surrog/Guard Advoc?: No Kings Chaudhry MD Sep 06, 2017 15:03
--- NOTE | 2017-09-06 15:30 | PD ---
Physical Exam Time Seen by Provider: 15:[address] Cooper has evaluated the patient, sariahed Radha acted cleared the patient for discharge. Data Data Last Documented VS Vital Signs Date Time Temp Pulse Resp B/P (MAP) Pulse Ox O2 Delivery O2 Flow Rate FiO2 09/06/17 10:28 71 16 117/77 (90) 98 Room Air 09/05/17 20:54 98.8 Orders Orders Complete Blood Count With Diff (09/05/17 20:45) Comprehensive Metabolic Panel (09/05/17 20:45) Thyroid Stimulating Hormone (09/05/17 20:45) Psych Screen (09/05/17 20:45) Haloperidol Inj (Haldol Inj) (09/05/17 20:45) Lorazepam Inj (Ativan Inj) (09/05/17 20:45) Drug Screen, Random Urine (09/05/17 20:45) Alcohol (Ethanol) (09/05/17 20:45) Potassium Chloride (Kcl) (09/05/17 23:15) Diet Regular Basic (09/06/17 Breakfast) Diet Regular Basic (09/06/17 Lunch) Labs Laboratory Tests Test 09/05/17 21:25 White Blood Count 9.1 TH/MM3 Red Blood Count 4.55 MIL/MM3 Hemoglobin 15.1 GM/DL Hematocrit 42.1 % Mean Corpuscular Volume 92.6 FL Mean Corpuscular Hemoglobin 33.3 PG Mean Corpuscular Hemoglobin Concent 35.9 % Red Cell Distribution Width 12.8 % Platelet Count 400 TH/MM3 Mean Platelet Volume 7.1 FL Neutrophils (%) (Auto) 55.2 % Lymphocytes (%) (Auto) 34.7 % Monocytes (%) (Auto) 6.6 % Eosinophils (%) (Auto) 2.2 % Basophils (%) (Auto) 1.3 % Neutrophils # (Auto) 5.0 TH/MM3 Lymphocytes # (Auto) 3.2 TH/MM3 Monocytes # (Auto) 0.6 TH/MM3 Eosinophils # (Auto) 0.2 TH/MM3 Basophils # (Auto) 0.1 TH/MM3 CBC Comment DIFF FINAL Differential Comment Blood Urea Nitrogen 13 MG/DL Creatinine 0.92 MG/DL Random Glucose 88 MG/DL Total Protein 8.4 GM/DL Albumin 4.4 GM/DL Calcium Level 9.3 MG/DL Alkaline Phosphatase 117 U/L Aspartate Amino Transf (AST/SGOT) 67 U/L Alanine Aminotransferase (ALT/SGPT) 82 U/L Total Bilirubin 0.6 MG/DL Sodium Level 140 MEQ/L Potassium Level 3.1 MEQ/L Chloride Level 101 MEQ/L Carbon Dioxide Level 26.9 MEQ/L Anion Gap 12 MEQ/L Estimat Glomerular Filtration Rate 68 ML/MIN Thyroid Stimulating Hormone 3rd Gen 1.910 uIU/ML Urine Opiates Screen NEG Urine Barbiturates Screen NEG Urine Amphetamines Screen POS Urine Benzodiazepines Screen NEG Urine Cocaine Screen NEG Urine Cannabinoids Screen NEG Ethyl Alcohol Level LESS THAN 3 MG/DL MDM Supervised Visit with [facility]: No Narrative Course Dr. Cooper has evaluated the patient, precious Garcia acted cleared the patient for discharge. Patient contracts safety. Denies suicidal or homicidal ideations. Patient will be provided community resource packet to /[facility] for follow-up. Has friends and family for support. Patient was medically cleared by alternate provider prior to psych screening. Patient has been evaluated by psychiatry and and is now cleared for discharge. Diagnosis Primary Impression: Amphetamine abuse Referrals: [facility] (Out patient) [facility] Primary Care Physician Psychiatrist Atilio [facility] Patient Instructions: General Instructions, Polysubstance Abuse (ED) Additional Instruction: Contract safety to your self and others Stop using drugs Follow-up with psychiatry Follow-up with primary care provider Follow-up with [facility] ePr[facility] Return to the emergency department immediately with worsening of symptoms Med/Other Pt SpecificInfo: No Change to Meds, No Meds Exist/No RX given Scripts No Active Prescriptions or Reported Meds Disposition: 01 DISCHARGE HOME Condition: Stable Veronica Altamirano Sep 06, 2017 15:30
== END 2017-09-06 16:03 | disposition home or self-care (01) ==
LOC: NEPD 20:13 → NEPJ 09-06 16:03
DX: F15.10 Other stimulant abuse, uncomplicated (principal); F17.200 Nicotine dependence, unspecified, uncomplicated
CPT/HCPCS: 80053; 80307; 84443; 85025; 96372; 99283; J1630; J2060

== ENCOUNTER 2017-09-14 11:00 | Emergency (ER) | payer MEDICARE, OTHER ==
[~2017-09-14] VITALS: Ht 154.9 cm; Wt 60.0 kg
[2017-09-14 11:09] VITALS: BP_SYST 172; BP_DIAS 105; BP_DIAS 90; PULSE 90; RESP 18; TEMP 98.7; O2SAT 100
--- NOTE | 2017-09-14 11:43 | PD ---
HPI Chief Complaint: Syncope/Near-Syncope Time Seen by Provider: 11:34 Travel History International Travel<30 days: No Contact w/Intl Traveler<30days: No History of Present Illness HPI 42-year-old female complains of dizziness. Patient states that dizziness started this morning. Patient denies any headache. Patient denies any visual change. Patient denies any neck pain. Patient denies any chest pain or shortness of breath. Patient denies abdominal pain. Patient denies any focal weakness or numbness of the extremity. Patient has history of substance abuse in the past. Patient denies any fever chills. Patient denies any coughing congestion. Patient denies nausea vomiting diarrhea. Patient denies any dysuria frequency. PFSH Past Medical History Asthma: No Anxiety: No Depression: Yes Heart Rhythm Problems: No Cancer: Yes (cervical ca) Cardiovascular Problems: Yes (HTN) High Cholesterol: No Chemotherapy: No Chest Pain: No Congestive Heart Failure: No COPD: No Diabetes: No Diminished Hearing: No Endocrine: No Gastrointestinal Disorders: Yes (gerd) Genitourinary: No Hepatitis: Yes (b and c) Hiatal Hernia: No Hypertension: Yes Immune Disorder: No Medical other: Yes (CHR. HEADACHES DUE TO TRAUMA r eye twitching with pain) Musculoskeletal: No Neurologic: No Psychiatric: No Reproductive: Yes (ENDOMETRIOSIS,FIBROIDS TUMOR) Respiratory: No Immunizations Current: No Radiation Therapy: No Sleep Apnea: No Thyroid Disease: No ?: Not : 5 Para: 6 Ovarian Cysts: Yes (BEAN.) Dilation and Curettage (D&C): Yes (06/2012) Past Surgical History Abdominal Surgery: Yes (EX LAP) AICD: No Appendectomy: Yes Section: Yes Gynecologic Surgery: Yes (LAPAROSCOPIES. c section) Hysterectomy: Yes Joint Replacement: No Oral Surgery: Yes (T & A) Pacemaker: No Tonsillectomy: Yes Other Surgery: Yes (d&c,cervical ca, hysterectomy) Social History Alcohol Use: No Tobacco Use: Yes (07/06 ppd) Substance Use: Yes (ADDERALL, COCAINE, METH ) Allergies-Medications (Allergen,Severity, Reaction): Coded Allergies: Sulfa (Sulfonamide Antibiotics) (Unverified Allergy, Severe, BLEEDING, HIVES, 09/05/17) aspirin (Unverified Allergy, Severe, BLEEDING,HIVES, 09/05/17) diclofenac (Unverified Allergy, Severe, Bleeding, 09/05/17) doxycycline (Unverified Allergy, Severe, Nausea/Vomiting, 09/05/17) etodolac (Unverified Allergy, Severe, Bleeding, 09/05/17) flurbiprofen (Unverified Allergy, Severe, Bleeding, 09/05/17) ibuprofen (Unverified Allergy, Severe, Bleeding, 09/05/17) indomethacin (Unverified Allergy, Severe, Bleeding, 09/05/17) ketoprofen (Unverified Allergy, Severe, Bleeding, 09/05/17) ketorolac (Unverified Allergy, Severe, Bleeding, 09/05/17) naproxen (Unverified Allergy, Severe, Bleeding, 09/05/17) oxaprozin (Unverified Allergy, Severe, Bleeding, 09/05/17) *MDRO Multi-Drug Resistant Organism (Verified Adverse Reaction, Unknown, ) 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 Reported Meds & Prescriptions Reported Meds & Active Scripts Active No Active Prescriptions or Reported Medications Review of Systems General / Constitutional: No: Fever Eyes: No: Visual changes HENT: Positive: Lightheadedness, No: Headaches Cardiovascular: No: Chest Pain or Discomfort Respiratory: No: Shortness of Breath Gastrointestinal: No: Abdominal Pain Genitourinary: No: Dysuria Musculoskeletal: No: Pain Skin: No Rash Neurologic: No: Weakness Psychiatric: No: Depression Endocrine: No: Polydipsia Hematologic/Lymphatic: No: Easy Bruising Physical Exam Narrative GENERAL: Well-nourished, well-developed patient. SKIN: Focused skin assessment warm/dry. HEAD: Normocephalic. EYES: No scleral icterus. No injection or drainage. Pupils 2 mm equal reactive. NECK: Supple, trachea midline. No JVD or lymphadenopathy. CARDIOVASCULAR: Regular rate and rhythm without murmurs, gallops, or rubs. RESPIRATORY: Breath sounds equal bilaterally. No accessory muscle use. GASTROINTESTINAL: Abdomen soft, non-tender, nondistended. MUSCULOSKELETAL: No cyanosis, or edema. BACK: Nontender without obvious deformity. No CVA tenderness. Neurologic exam: Patient is awake and alert oriented 3. Patient moves all extremity well. No obvious focal neurological deficit. Data Data Last Documented VS Vital Signs Date Time Temp Pulse Resp B/P (MAP) Pulse Ox O2 Delivery O2 Flow Rate FiO2 09/14/17 11:09 98.7 90 18 172/90 (117) 100 Orders Orders Ed Discharge Order (09/14/17 11:43) MDM Medical Decision Making Medical Screen Exam Complete: Yes Emergency Medical Condition: Yes Differential Diagnosis Differential diagnosis including vertigo, viral syndrome, substance abuse. Narrative Course 42-year-old female complains of dizziness. Physical exam benign. No acute emergency condition. Vital signs stable. Diagnosis Primary Impression: Dizziness, nonspecific Patient Instructions: General Instructions Additional Instructions: Patient is medically cleared for discharged in the custody of master police detective. Scripts No Active Prescriptions or Reported Meds Disposition: [address] LAW ENFORCEMNT Condition: Stable Kyle Lynch MD Sep 14, 2017 11:43
== END 2017-09-14 12:05 ==
LOC: NEPD 11:00
DX: R42 Dizziness and giddiness (principal); F32.9 Major depressive disorder, single episode, unspecified; I10 Essential (primary) hypertension; K21.9 Gastro-esophageal reflux disease without esophagitis; Z86.19 Personal history of other infectious and parasitic diseases; F17.200 Nicotine dependence, unspecified, uncomplicated; F15.21 Other stimulant dependence, in remission; F14.21 Cocaine dependence, in remission; Z88.2 Allergy status to sulfonamides
CPT/HCPCS: 99282

== ENCOUNTER 2017-11-24 02:27 | Emergency (ER) | payer MEDICARE, OTHER ==
[~2017-11-24] VITALS: Ht 154.9 cm; Wt 59.0 kg
[2017-11-24 02:34] VITALS: BP 108/79; PULSE 104; RESP 16; TEMP 97.7; O2SAT 97
--- NOTE | 2017-11-24 03:13 | RADRPT ---
EXAM DATE: 11/24/2017 3:08 AM EDT AGE/SEX: 42 years / Female INDICATIONS: Chest and back pain on the rest side. CLINICAL DATA: This is the patient's initial encounter. Patient reports that signs and symptoms have been present for 2 months and indicates a pain score of 9/10. MEDICAL/SURGICAL HISTORY: Carcinoma, ovarian. Hysterectomy. COMPARISON: [facility] – [place], CHEST SINGLE AP, 06/09/2017. . FINDINGS: A single AP view of the chest demonstrates the lungs to be symmetrically aerated without evidence of mass, infiltrate or effusion. The cardiomediastinal contours are unremarkable. Osseous structures a re intact. CONCLUSION: No acute cardiopulmonary process. Electronically signed by: Marcel Reinoso MD 11/24/2017 3:12 AM EDT
[2017-11-24 03:15] LABS: AUTOMATED NEUTROPHIL # 8.5 TH/MM3 (1.8-7.7); BASOPHIL # 0.1 TH/MM3 (0-0.2); BASOPHIL % 0.5 % (0.0-2.0); EOSINOPHIL # 0.1 TH/MM3 (0-0.4); EOSINOPHIL % 0.9 % (0.0-4.0); HEMATOCRIT 40.1 % (35.0-46.0); HEMOGLOBIN 13.5 GM/DL (11.6-15.3); LYMPH % 25.2 % (9.0-44.0); LYMPHOCYTE # 3.4 TH/MM3 (1.0-4.8); MEAN CELL VOLUME 95.5 FL (80.0-100.0); MEAN CORPUSCULAR HEMOGLOBIN 32.1 PG (27.0-34.0); MEAN CORPUSCULAR HGB CONC 33.6 % (32.0-36.0); MONO % 9.5 % (0.0-8.0); MONOCYTE # 1.3 TH/MM3 (0-0.9); NEUT % 63.9 % (16.0-70.0); PLATELET COUNT 365 TH/MM3 (150-450); RED CELL DISTRIBUTION WIDTH 13.1 % (11.6-17.2); WHITE BLOOD COUNT 13.3 TH/MM3 (4.0-11.0)
[2017-11-24 03:25] LABS: BICARBONATE 31.7 MEQ/L (21.0-32.0); BLOOD UREA NITROGEN 15 MG/DL (7-18); CALCIUM 8.8 MG/DL (8.5-10.1); CHLORIDE 103 MEQ/L (98-107); CREATININE 0.83 MG/DL (0.50-1.00); GLOMERULAR FILTRATION RATE 76 ML/MIN (>89); GLUCOSE,RANDOM 109 MG/DL (74-106); SODIUM (NA) 143 MEQ/L (136-145)
[2017-11-24 03:28] LABS: TROPONIN I LESS THAN 0.02 NG/ML (0.02-0.05)
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
[2017-11-24] MEDS ORDERED: ACETAMINOPHEN 325 MG TAB PO ONE (08:45)
--- NOTE | 2017-11-24 18:28 | EKG ---
Date Performed: 11/24/2017 Time Performed: 02:48:36 PTAGE: 42 years EKG: Sinus rhythm WITH SHORT LA INTERVAL Since previous tracing, no significant change noted BORDERLINE ECG PREVIOUS TRACING : 06/09/2017 11.06 DOCTOR: Sobia Ortega Interpretating Date/Time 11/24/2017 18:26:53
== END 2017-11-24 11:24 | disposition home or self-care (01) ==
LOC: NEPC 02:27
DX: R07.89 Other chest pain (principal); F17.200 Nicotine dependence, unspecified, uncomplicated
CPT/HCPCS: 71045; 80048; 82550; 84484; 85025; 93005; 99285

== ENCOUNTER 2017-11-25 09:55 | Inpatient (IN) | payer MEDICARE, OTHER ==
[~2017-11-25] VITALS: Ht 157.5 cm; Wt 59.2 kg
[2017-11-25] VITALS (10 sets, daily range): BP systolic 90–130; BP diastolic 56–77; PULSE 60–111; RESP 15–20; TEMP 98.1–103; O2SAT 96–100
--- NOTE | 2017-11-25 10:27 | PD ---
HPI Chief Complaint: Headache, fever, nausea vomiting Time Seen by Provider: 10:00 Travel History International Travel<30 days: No Contact w/Intl Traveler<30days: No Traveled to known affect area: No History of Present Illness HPI 42-year-old female complains of headache, nausea vomiting and fever. Patient states that she started having headache and intermittent nausea vomiting for the past 3 days. Patient stated headache account headache aching headache diffuse over the head. Patient states that she had trouble focusing. Patient complains of mild photophobia. Patient denies any neck pain. Patient denies any chest pain or shortness of breath. Patient states that she has abdominal pain. Patient denies any focal weakness or numbness of extremity. Patient denied dysuria or frequency. Patient denies any vaginal discharge or bleeding. Patient states that she was at [facility] ago and urine tests and blood test with positive for . Patient has history of amphetamine or cocaine abuse in the past however not recently. Patient denies any alcohol abuse. Patient states that she is not on any routine medication. Patient states abdominal pain is diffuse over the abdomen. Patient stated the pain is cramping pain and sharp pain. Patient denies any pain radiation. On a scale of 1-10 the pain is a 7. PFSH Past Medical History Asthma: No Anxiety: No Depression: Yes Heart Rhythm Problems: No Cancer: Yes (cervical ca) Cardiovascular Problems: Yes (HTN) High Cholesterol: No Chemotherapy: No Chest Pain: No Congestive Heart Failure: No COPD: No Diabetes: Yes Diminished Hearing: No Endocrine: No Gastrointestinal Disorders: Yes (gerd) Genitourinary: No Hepatitis: Yes (b and c) Hiatal Hernia: No Hypertension: Yes Immune Disorder: No Musculoskeletal: No Neurologic: No Psychiatric: No Reproductive: Yes (ENDOMETRIOSIS,FIBROIDS TUMOR) Respiratory: Yes (Asthma) Immunizations Current: No Radiation Therapy: No Sleep Apnea: No Thyroid Disease: No : 5 Para: 6 Ovarian Cysts: Yes (BEAN.) Dilation and Curettage (D&C): Yes (06/2012) Past Surgical History Abdominal Surgery: Yes (EX LAP) AICD: No Appendectomy: Yes Section: Yes Gynecologic Surgery: Yes (LAPAROSCOPIES. c section) Hysterectomy: Yes Joint Replacement: No Oral Surgery: Yes (T & A) Pacemaker: No Tonsillectomy: Yes Other Surgery: Yes (d&c,cervical ca, hysterectomy) Social History Alcohol Use: No Tobacco Use: Yes (07/06 ppd) Substance Use: Yes (ADDERALL, COCAINE, METH ) Allergies-Medications (Allergen,Severity, Reaction): Coded Allergies: Sulfa (Sulfonamide Antibiotics) (Unverified Allergy, Severe, BLEEDING, HIVES, 11/25/17) aspirin (Unverified Allergy, Severe, BLEEDING,HIVES, 11/25/17) diclofenac (Unverified Allergy, Severe, Bleeding, 11/25/17) doxycycline (Unverified Allergy, Severe, Nausea/Vomiting, 11/25/17) etodolac (Unverified Allergy, Severe, Bleeding, 11/25/17) flurbiprofen (Unverified Allergy, Severe, Bleeding, 11/25/17) ibuprofen (Unverified Allergy, Severe, Bleeding, 11/25/17) indomethacin (Unverified Allergy, Severe, Bleeding, 11/25/17) ketoprofen (Unverified Allergy, Severe, Bleeding, 11/25/17) ketorolac (Unverified Allergy, Severe, Bleeding, 11/25/17) naproxen (Unverified Allergy, Severe, Bleeding, 11/25/17) oxaprozin (Unverified Allergy, Severe, Bleeding, 11/25/17) *MDRO Multi-Drug Resistant Organism (Verified Adverse Reaction, Unknown, ) 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 Reported Meds & Prescriptions Reported Meds & Active Scripts Active No Active Prescriptions or Reported Medications Review of Systems General / Constitutional: Positive: Fever Eyes: No: Visual changes HENT: Positive: Headaches Cardiovascular: No: Chest Pain or Discomfort Respiratory: No: Shortness of Breath Gastrointestinal: Positive: Abdominal Pain Genitourinary: No: Dysuria Musculoskeletal: No: Pain Skin: No Rash Neurologic: No: Weakness Psychiatric: No: Depression Endocrine: No: Polydipsia Hematologic/Lymphatic: No: Easy Bruising Physical Exam Narrative GENERAL: Well-nourished, well-developed patient. SKIN: Focused skin assessment warm/dry. HEAD: Normocephalic. EYES: No scleral icterus. No injection or drainage. Pupils 2 mm equal reactive. NECK: Supple, trachea midline. No JVD or lymphadenopathy. No meningismus CARDIOVASCULAR: Regular rate and rhythm without murmurs, gallops, or rubs. RESPIRATORY: Breath sounds equal bilaterally. No accessory muscle use. GASTROINTESTINAL: Abdomen soft, nondistended. Patient has moderate diffuse tenderness over the abdomen. No rebound tenderness. No mass. MUSCULOSKELETAL: No cyanosis, or edema. BACK: Nontender without obvious deformity. No CVA tenderness. Neurologic exam: Patient is with lethargy however answer questions appropriately. Patient moves all extremity well. No obvious focal neurological deficit. Data Data Last Documented VS Vital Signs Date Time Temp Pulse Resp B/P (MAP) Pulse Ox O2 Delivery O2 Flow Rate FiO2 11/25/17 12:35 99.7 92 17 108/67 (81) 98 Room Air Orders Orders Electrocardiogram (11/25/17 10:13) Complete Blood Count With Diff (11/25/17 10:13) Comprehensive Metabolic Panel (11/25/17 10:13) Creatine Kinase (Cpk) (11/25/17 10:13) Troponin I (11/25/17 10:13) Prothrombin Time / Inr (Pt) (11/25/17 10:13) Act Partial Throm Time (Ptt) (11/25/17 10:13) Blood Culture (11/25/17 10:13) Lipase (11/25/17 10:13) Urinalysis - C+S If Indicated (11/25/17 10:13) Magnesium (Mg) (11/25/17 10:13) Thyroid Stimulating Hormone (11/25/17 10:13) Phosphorus (Po4) (11/25/17 10:13) Chest, Single Ap (11/25/17 10:13) Ct Brain W/O Iv Contrast(Rout) (11/25/17 10:13) Iv Access Insert/Monitor (11/25/17 10:13) Ecg Monitoring (11/25/17 10:13) Oximetry (11/25/17 10:13) Drug Screen, Random Urine (11/25/17 10:13) Alcohol (Ethanol) (11/25/17 10:13) Beta Hcg (Quant/Titer) (11/25/17 10:13) Ed Urine Pregnancytest Poc (11/25/17 10:13) Sodium Chlor 0.9% 1000 Ml Inj (Ns 1000 M (11/25/17 10:30) C-Reactive Protein (Crp) (11/25/17 10:18) Westergren Sedimentation Rate (11/25/17 10:18) Lactic Acid (11/25/17 10:43) Acetaminophen (Tylenol) (11/25/17 10:45) Ct Abd/Pel W Iv Contrast(Rout) (11/25/17 11:55) Vancomycin Inj (Vancomycin Inj) (11/25/17 12:00) Piperacil-Tazo 3.375 Gm Premix (Zosyn 3. (11/25/17 12:00) Ceftriaxone Inj (Rocephin Inj) (11/25/17 12:00) Iohexol 350 Inj (Omnipaque 350 Inj) (11/25/17 12:16) Urine Culture (11/25/17 12:20) Ns + Kcl 20 Meq Inj (Ns + Kcl 20 Meq Inj (11/25/17 13:00) Admit Order (Ed Use Only) (11/25/17 13:13) Admit To Inpatient (11/25/17 ) Code Status (11/25/17 13:13) Vital Signs (Adult) Q4H (11/25/17 13:13) Activity Oob With Assistance (11/25/17 13:13) Diet Heart Healthy (11/25/17 Lunch) Sodium Chlor 0.9% 1000 Ml Inj (Ns 1000 M (11/25/17 13:13) Sodium Chloride 0.9% Flush (Ns Flush) (11/25/17 13:15) Sodium Chloride 0.9% Flush (Ns Flush) (11/25/17 21:00) Acetaminophen (Tylenol) (11/25/17 13:15) Ondansetron Inj (Zofran Inj) (11/25/17 13:15) Comprehensive Metabolic Panel (11/26/17 06:00) Complete Blood Count With Diff (11/26/17 06:00) Case Management Consult (11/25/17 13:13) Scd Bilateral/Knee High PATRICIA.BID (11/25/17 13:13) Acetaminophen (Tylenol) (11/25/17 13:15) Naloxone Inj (Narcan Inj) (11/25/17 13:15) Magnesium Hydroxide Liq (Milk Of Magnesi (11/25/17 13:15) Inpatient Certification (11/25/17 ) Labs Laboratory Tests Test 11/25/17 10:24 11/25/17 10:35 11/25/17 12:20 White Blood Count 16.4 TH/MM3 Red Blood Count 4.00 MIL/MM3 Hemoglobin 11.9 GM/DL Hematocrit 37.8 % Mean Corpuscular Volume 94.5 FL Mean Corpuscular Hemoglobin 29.7 PG Mean Corpuscular Hemoglobin Concent 31.4 % Red Cell Distribution Width 12.3 % Platelet Count 319 TH/MM3 Mean Platelet Volume 7.4 FL Neutrophils (%) (Auto) 76.7 % Lymphocytes (%) (Auto) 15.0 % Monocytes (%) (Auto) 7.2 % Eosinophils (%) (Auto) 0.5 % Basophils (%) (Auto) 0.6 % Neutrophils # (Auto) 12.5 TH/MM3 Lymphocytes # (Auto) 2.5 TH/MM3 Monocytes # (Auto) 1.2 TH/MM3 Eosinophils # (Auto) 0.1 TH/MM3 Basophils # (Auto) 0.1 TH/MM3 CBC Comment AUTO DIFF Differential Comment AUTO DIFF CONFIRMED Platelet Estimate NORMAL Platelet Morphology Comment NORMAL Erythrocyte Sedimentation Rate 79 mm/hr Prothrombin Time 11.4 SEC Prothromb Time International Ratio 1.1 RATIO Activated Partial Thromboplast Time 33.3 SEC Blood Urea Nitrogen 10 MG/DL Creatinine 0.62 MG/DL Random Glucose 105 MG/DL Total Protein 7.4 GM/DL Albumin 2.9 GM/DL Calcium Level 8.6 MG/DL Phosphorus Level 1.2 MG/DL Magnesium Level 2.0 MG/DL Alkaline Phosphatase 83 U/L Aspartate Amino Transf (AST/SGOT) 21 U/L Alanine Aminotransferase (ALT/SGPT) 27 U/L Total Bilirubin 0.8 MG/DL Sodium Level 135 MEQ/L Potassium Level 3.5 MEQ/L Chloride Level 102 MEQ/L Carbon Dioxide Level 24.1 MEQ/L Anion Gap 9 MEQ/L Estimat Glomerular Filtration Rate 107 ML/MIN Total Creatine Kinase 67 U/L Troponin I LESS THAN 0.02 NG/ML C-Reactive Protein 14.10 MG/DL Lipase 55 U/L Thyroid Stimulating Hormone 3rd Gen 0.664 uIU/ML Human Chorionic Gonadotropin, Quant LESS THAN 1 MIU/ML Ethyl Alcohol Level LESS THAN 3 MG/DL Lactic Acid Level 1.2 mmol/L Urine Collection Type VOIDED Urine Color YELLOW Urine Turbidity CLOUDY Urine pH 7.0 Urine Specific Holliday 1.010 Urine Protein 100 mg/dL Urine Glucose (UA) NEG mg/dL Urine Ketones NEG mg/dL Urine Occult Blood LARGE Urine Nitrite POS Urine Bilirubin NEG Urine Urobilinogen 1.0 MG/DL Urine Leukocyte Esterase MOD Urine WBC INNUM /hpf Urine WBC Clumps FEW Urine Squamous Epithelial Cells 0-3 /hpf Urine Bacteria MANY /hpf Microscopic Urinalysis Comment CULTURE INDICATED Urine Opiates Screen NEG Urine Barbiturates Screen NEG Urine Amphetamines Screen POS Urine Benzodiazepines Screen NEG Urine Cocaine Screen NEG Urine Cannabinoids Screen NEG MDM Medical Decision Making Medical Screen Exam Complete: Yes Emergency Medical Condition: Yes Interpretation(s) 11:53 AM. CBC WBC 16.4. 76 neutrophil. Sed rate 79. CMP with sodium 135. Cardiac enzymes are normal. C-reactive protein 14.10. At the acid 1.2. Beta- hCG negative. Alcohol less than 3. Differential Diagnosis Differential diagnosis including viral syndrome, bronchitis, pneumonia, gastritis, PUD, pancreatitis, cholecystitis, colitis, UTI, pyelonephritis, nephrolithiasis, sepsis, encephalitis. Narrative Course 42-year-old female with fever, headache, abdominal pain. History of substance abuse. Normal saline solution 1 L IV bolus. Vancomycin 1 g IV. Zosyn 3.375 g IV given. Rocephin 2 g IV given. Diagnosis Primary Impression: Pyelonephritis Additional Impression: Sepsis Qualified Codes: A41.9 - Sepsis, unspecified organism Admitting Information Admitting Physician Requests: Admit Scripts No Active Prescriptions or Reported Meds Kyle Lynch MD November 25, 2017 10:27
[2017-11-25] MEDS ORDERED: SODIUM CHLOR 0.9% 1000 ML INJ 1,000 ML IV ONE (10:30)
[2017-11-25 10:45] LABS: AUTOMATED NEUTROPHIL # 12.5 TH/MM3 (1.8-7.7); BASOPHIL # 0.1 TH/MM3 (0-0.2); BASOPHIL % 0.6 % (0.0-2.0); EOSINOPHIL # 0.1 TH/MM3 (0-0.4); EOSINOPHIL % 0.5 % (0.0-4.0); HEMATOCRIT 37.8 % (35.0-46.0); HEMOGLOBIN 11.9 GM/DL (11.6-15.3); LYMPHOCYTE # 2.5 TH/MM3 (1.0-4.8); MEAN CELL VOLUME 94.5 FL (80.0-100.0); MEAN CORPUSCULAR HEMOGLOBIN 29.7 PG (27.0-34.0); MEAN CORPUSCULAR HGB CONC 31.4 % (32.0-36.0); MEAN PLATELET VOLUME 7.4 FL (7.0-11.0); MONO % 7.2 % (0.0-8.0); MONOCYTE # 1.2 TH/MM3 (0-0.9); NEUT % 76.7 % (16.0-70.0); PLATELET COUNT 319 TH/MM3 (150-450); RED CELL DISTRIBUTION WIDTH 12.3 % (11.6-17.2); WHITE BLOOD COUNT 16.4 TH/MM3 (4.0-11.0)
[2017-11-25] MEDS ORDERED: ACETAMINOPHEN 325 MG TAB PO ONE (10:45)
[2017-11-25 10:55] LABS: CHLORIDE 102 MEQ/L (98-107); SODIUM (NA) 135 MEQ/L (136-145)
[2017-11-25 10:59] LABS: ALBUMIN 2.9 GM/DL (3.4-5.0); BICARBONATE 24.1 MEQ/L (21.0-32.0); CALCIUM 8.6 MG/DL (8.5-10.1); GLUCOSE,RANDOM 105 MG/DL (74-106); INTERNATIONAL NORMALIZED RATIO 1.1 RATIO; PROTHROMBIN TIME - PATIENT 11.4 SEC (9.8-11.6)
[2017-11-25 11:00] LABS: BLOOD UREA NITROGEN 10 MG/DL (7-18)
[2017-11-25 11:02] LABS: ALT (GPT) 27 U/L (10-53); AST (GOT) 21 U/L (15-37); CREATININE 0.62 MG/DL (0.50-1.00); GLOMERULAR FILTRATION RATE 107 ML/MIN (>89); PHOSPHORUS 1.2 MG/DL (2.5-4.9)
[2017-11-25 11:04] LABS: TOTAL BILIRUBIN ADULT 0.8 MG/DL (0.2-1.0); TOTAL PROTEIN 7.4 GM/DL (6.4-8.2)
[2017-11-25 11:05] LABS: ALKALINE PHOSPHATASE 83 U/L (45-117)
[2017-11-25 11:08] LABS: TROPONIN I LESS THAN 0.02 NG/ML (0.02-0.05)
[2017-11-25] MEDS ORDERED: cefTRIAXone INJ 2,000 MG in SODIUM CHLORIDE 0.9% INJ 100 ML IV ONE (12:00)
[2017-11-25] MEDS ORDERED: VANCOMYCIN INJ 1,000 MG in SODIUM CHLOR 0.9% 250 ML INJ 250 ML IV ONE (12:00)
[2017-11-25] MEDS ORDERED: PIPERACIL-TAZO 3.375 GM PREMIX 50 ML IV ONE (12:00)
--- NOTE | 2017-11-25 12:12 | RADRPT ---
EXAM DATE: 11/25/2017 12:10 PM EDT AGE/SEX: 42 years / Female INDICATIONS: Fever, headache CLINICAL DATA: This is the patient's initial encounter. Patient reports that signs and symptoms have been present for 2 days and indicates a pain score of 9/10. MEDICAL/SURGICAL HISTORY: Carcinoma, ovarian. Hysterectomy. [place] [facility] [place]. . FINDINGS: A single AP view of the chest demonstrates the lungs to be symmetrically aerated without evidence of mass, infiltrate or effusion. The cardiomediastinal contours are unremarkable. Osseous structures a re intact. CONCLUSION: No acute intrathoracic disease. Stable examination. Electronically signed by: Garrett Ballard MD 11/25/2017 12:11 PM EDT
[2017-11-25] MEDS ORDERED: IOHEXOL 350 MG/ML 10 ML VIAL (for RAD DIAG) IVCONTRAST ONE (12:16)
--- NOTE | 2017-11-25 12:23 | RADRPT ---
EXAM DATE: 11/25/2017 12:20 PM EDT AGE/SEX: 42 years / Female INDICATIONS: Cephalgia today. CLINICAL DATA: This is the patient's initial encounter. Patient reports that signs and symptoms have been present for 1 day and indicates a pain score of 8/10. MEDICAL/SURGICAL HISTORY: Carcinoma, cervical. Hepatitis C. Hepatitis B. Hysterectomy. Tonsillec gisselle. RADIATION DOSE: 51.84 CTDI (mGy) COMPARISON: No prior [place] exams available for comparison. TECHNIQUE: CT of the head without contrast. Using automated exposure control and adjustment of the mA and/or kV according to patient size, radiation dose was kept as low as reasonably achievable to ob tain optimal diagnostic quality images. FINDINGS: Cerebrum: The ventricles are normal for age. No evidence of midline shift, mass lesion, hemorrhage or acute infarction. No extraaxial fluid collections are seen. Posterior Fossa: The cerebellum and brainstem are intact. The 4th ventricle is midline. The cerebe llopontine angle is unremarkable. Extracranial: The visualized portion of the orbits is intact. Skull: The calvaria is intact. No evidence of skull fracture. CONCLUSION: 1. Unremarkable CT brain examination. Electronically signed by: Garrett Ballard MD 11/25/2017 12:21 PM EDT
--- NOTE | 2017-11-25 12:34 | RADRPT ---
EXAM DATE: 11/25/2017 12:25 PM EDT AGE/SEX: 42 years / Female INDICATIONS: Diffuse abdomen pain today. CLINICAL DATA: This is the patient's initial encounter. Patient reports that signs and symptoms have been present for 1 day and indicates a pain score of 8/10. MEDICAL/SURGICAL HISTORY: Carcinoma, cervical. Hepatitis B. Hepatitis C. Hysterectomy. ORAL CONTRAST: No oral contrast ingested. RADIATION DOSE: 6.15 CTDI (mGy) COMPARISON: [facility] [place], CT ABDOMEN & PELVIS W/O CONTRAST, 06/04/2016. . TECHNIQUE: Multiple contiguous axial images were obtained through the abdomen and pelvis following b olus infusion of 70 ml Omnipaque 350 (iohexol) nonionic water-soluble contrast as a single exam dos e. No oral contrast ingested. Using automated exposure control and adjustment of the mA and/or kV ac cording to patient size, the radiation dose was kept as low as reasonably achievable to obtain optima l diagnostic quality images. FINDINGS: Lower Lungs: The visualized lower lungs are clear. Liver: The liver has a homogeneous density without space-occupying lesion. There is no dilation of th e biliary tree. The gallbladder is unremarkable. Spleen: Homogeneous density without enlargement. Pancreas: Unremarkable without mass or calcification. Kidneys: No evidence of mass or hydronephrosis. Tiny 2 mm nonobstructing stone lower pole left kidne y. There is some mild prominence of the left kidney compared to the right with some decreased density along the mid pole. This is nonspecific but may represent some nephritis. Adrenal Glands: Unremarkable. Aorta: The aorta and proximal iliac vessels are grossly unremarkable without aneurysmal dilation. Bowel/Mesentery: The bowel gas pattern is grossly within normal limits. There is some mild dilatatio n of some small bowel loops with some air and fluid. No free air or free fluid is seen.No inflammator y changes. There is stool throughout the colon. Air can be traced all the way to the rectum. Abdominal Wall: Intact. Retroperitoneum: No evidence of adenopathy in the retrocrural, para-aortic, or deep pelvic regions. Bladder: Contours are smooth. No evidence of stones. Reproductive Organs: No abnormal masses or calcifications seen. Inguinal: The inguinal region is unremarkable without evidence of adenopathy. Bony Structures: Mild degenerative changes. No significant changes compared to the prior study. CONCLUSION: 1. 2 mm nonobstructing stone lower pole left kidney. 2. Mild nonspecific prominence of the left kidney with some decreased density along the mid pole. Th is may represent a focal inflammatory process such as nephritis. This needs to be correlated with pat ient's physical, clinical exam and UA. 3. Mild dilatation of some small bowel loops with air and fluid. This is nonspecific and could repre sent a mild ileus. However, no mechanical obstruction is seen at this time. Electronically signed by: Garrett Ballard MD 11/25/2017 12:33 PM EDT
[2017-11-25 12:37] LABS: BILIRUBIN, URINE NEG (NEG); BLOOD, URINE LARGE (NEG); GLUCOSE,URINE NEG (NEG); KETONE, URINE NEG (NEG); NITRITE,URINE POS (NEG); URINE COLOR YELLOW (YELLW/STRAW); URINE LEUKOCYTE ESTERASE MOD (NEG)
[2017-11-25 12:45] LABS: WBC, URINE INNUM /hpf (0-5); WHITE BLOOD CELL CLUMPS FEW
[2017-11-25 12:47] LABS: BACTERIA, URINE MANY /hpf; SQUAMOUS EPITHELIAL CELL URINE 0-3 /hpf (0-5)
[2017-11-25] MEDS ORDERED: NS + KCL 20 MEQ INJ 1,000 ML IV SCH (13:00)
[2017-11-25] MEDS ORDERED: MAGNESIUM HYDROXIDE SUSP 30 ML CUP PO PRN (13:15)
[2017-11-25] MEDS ORDERED: ACETAMINOPHEN 325 MG TAB PO PRN ×2 (13:15)
[2017-11-25] MEDS ORDERED: ONDANSETRON HCL 4 MG/2 ML VIAL IVP PRN (13:15)
[2017-11-25] MEDS ORDERED: SODIUM CHLORIDE 0.9% FLUSH 10 ML FLUSH IV FLUSH PRN (13:15)
[2017-11-25] MEDS ORDERED: NALOXONE HCL 0.4 MG/ML AMP IV PUSH PRN (13:15)
--- NOTE | 2017-11-25 13:55 | HHI.HP ---
[facility] Physician Unknown Admission Diagnosis Sepsis. Pyelonephritis. Substance abuse. Diagnoses: (1) Sepsis (2) Pyelonephritis Chief Complaint: Right sided flank pain Travel History International Travel<30 Days: No Contact w/Intl Traveler <30 Da: No Traveled to Known Affected Are: No Sepsis Criteria SIRS Criteria (2 or more): Temp > 100.9 or < 96.8, WBC > 15358, < 4000 or > 10 % bands Sepsis Criteria (SIRS+source): Infect source susp/known Criteria Outcome: Meets sepsis criteria History of Present Illness 42-year-old female with a history of polysubstance abuse presented to the ED for evaluation of multiple complaints including right-sided flank pain, neck pain, intractable emesis, dysuria. Patient reports initial generalized pain 4 days ago which is now mostly worse on her right flank area. She also reported subjective fever. Patient states she has been having dry heaves however denies any GI bleeds. Presentation, patient is febrile with elevated WBC Review of Systems Except as stated in HPI: all other systems reviewed are Neg Past Family Social History Past Medical History HTN, Depression and Polysubstance Abuse Past Surgical History Appendectomy, Tonsillectomy, Reported Medications No Active Prescriptions or Reported Medications Allergies: Coded Allergies: Sulfa (Sulfonamide Antibiotics) (Unverified Allergy, Severe, BLEEDING, HIVES, 11/25/17) aspirin (Unverified Allergy, Severe, BLEEDING,HIVES, 11/25/17) diclofenac (Unverified Allergy, Severe, Bleeding, 11/25/17) doxycycline (Unverified Allergy, Severe, Nausea/Vomiting, 11/25/17) etodolac (Unverified Allergy, Severe, Bleeding, 11/25/17) flurbiprofen (Unverified Allergy, Severe, Bleeding, 11/25/17) ibuprofen (Unverified Allergy, Severe, Bleeding, 11/25/17) indomethacin (Unverified Allergy, Severe, Bleeding, 11/25/17) ketoprofen (Unverified Allergy, Severe, Bleeding, 11/25/17) ketorolac (Unverified Allergy, Severe, Bleeding, 11/25/17) naproxen (Unverified Allergy, Severe, Bleeding, 11/25/17) oxaprozin (Unverified Allergy, Severe, Bleeding, 11/25/17) *MDRO Multi-Drug Resistant Organism (Verified Adverse Reaction, Unknown, ) 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 Family History History positive for diabetes Mother had cervical cancer Social History Patient smokes half a pack per day, admitted to illicit drug intake however denies any alcohol Physical Exam Vital Signs Vital Signs Date Time Temp Pulse Resp B/P (MAP) Pulse Ox O2 Delivery O2 Flow Rate FiO2 11/25/17 12:35 99.7 92 17 108/67 (81) 98 Room Air 11/25/17 11:27 Room Air 11/25/17 11:26 109 18 109/72 (84) 96 Room Air 11/25/17 11:21 103.0 109 18 111/73 (86) 97 Room Air 11/25/17 10:15 97 Room Air 11/25/17 10:02 103.0 110 18 90/56 (67) Physical Exam GENERAL: This is a well-nourished, well-developed patient, in mild distress. SKIN: No rashes, ecchymoses or lesions. Cool and dry. HEAD: Atraumatic. Normocephalic. No temporal or scalp tenderness. EYES: Pupils equal round and reactive. Extraocular motions intact. No scleral icterus. No injection or drainage. ENT: Nose without bleeding, purulent drainage or septal hematoma. Throat without erythema, tonsillar hypertrophy or exudate. Uvula midline. Airway patent. NECK: Trachea midline. No JVD or lymphadenopathy. Supple, nontender, no meningeal signs. CARDIOVASCULAR: Regular rate and rhythm without murmurs, gallops, or rubs. RESPIRATORY: Clear to auscultation. Breath sounds equal bilaterally. No wheezes , rales, or rhonchi. GASTROINTESTINAL: Abdomen soft, mildly tender, nondistended. No hepato- splenomegaly, or palpable masses. No guarding. MUSCULOSKELETAL: Extremities without clubbing, cyanosis, or edema. No joint tenderness, effusion, or edema noted. No calf tenderness. Negative Homans sign bilaterally.+TTP/CVA NEUROLOGICAL: Awake and alert. Cranial nerves II through XII intact. Motor and sensory grossly within normal limits. Five out of 5 muscle strength in all muscle groups. Normal speech. Laboratory Laboratory Tests Test 11/25/17 10:24 11/25/17 10:35 11/25/17 12:20 White Blood Count 16.4 Red Blood Count 4.00 Hemoglobin 11.9 Hematocrit 37.8 Mean Corpuscular Volume 94.5 Mean Corpuscular Hemoglobin 29.7 Mean Corpuscular Hemoglobin Concent 31.4 Red Cell Distribution Width 12.3 Platelet Count 319 Mean Platelet Volume 7.4 Neutrophils (%) (Auto) 76.7 Lymphocytes (%) (Auto) 15.0 Monocytes (%) (Auto) 7.2 Eosinophils (%) (Auto) 0.5 Basophils (%) (Auto) 0.6 Neutrophils # (Auto) 12.5 Lymphocytes # (Auto) 2.5 Monocytes # (Auto) 1.2 Eosinophils # (Auto) 0.1 Basophils # (Auto) 0.1 CBC Comment AUTO DIFF Differential Comment AUTO DIFF CONFIRMED Platelet Estimate NORMAL Platelet Morphology Comment NORMAL Erythrocyte Sedimentation Rate 79 Prothrombin Time 11.4 Prothromb Time International Ratio 1.1 Activated Partial Thromboplast Time 33.3 Blood Urea Nitrogen 10 Creatinine 0.62 Random Glucose 105 Total Protein 7.4 Albumin 2.9 Calcium Level 8.6 Phosphorus Level 1.2 Magnesium Level 2.0 Alkaline Phosphatase 83 Aspartate Amino Transf (AST/SGOT) 21 Alanine Aminotransferase (ALT/SGPT) 27 Total Bilirubin 0.8 Sodium Level 135 Potassium Level 3.5 Chloride Level 102 Carbon Dioxide Level 24.1 Anion Gap 9 Estimat Glomerular Filtration Rate 107 Total Creatine Kinase 67 Troponin I LESS THAN 0.02 C-Reactive Protein 14.10 Lipase 55 Thyroid Stimulating Hormone 3rd Gen 0.664 Human Chorionic Gonadotropin, Quant LESS THAN 1 Ethyl Alcohol Level LESS THAN 3 Lactic Acid Level 1.2 Urine Collection Type VOIDED Urine Color YELLOW Urine Turbidity CLOUDY Urine pH 7.0 Urine Specific [place] 1.010 Urine Protein 100 Urine Glucose (UA) NEG Urine Ketones NEG Urine Occult Blood LARGE Urine Nitrite POS Urine Bilirubin NEG Urine Urobilinogen 1.0 Urine Leukocyte Esterase MOD Urine WBC INNUM Urine WBC Clumps FEW Urine Squamous Epithelial Cells 0-3 Urine Bacteria MANY Microscopic Urinalysis Comment CULTURE INDICATED Urine Opiates Screen NEG Urine Barbiturates Screen NEG Urine Amphetamines Screen POS Urine Benzodiazepines Screen NEG Urine Cocaine Screen NEG Urine Cannabinoids Screen NEG Date/Time Source Procedure Growth Status 11/25/17 10:25 Blood Peripheral Aerobic Blood Culture Pending Received 11/25/17 10:25 Blood Peripheral Anaerobic Blood Culture Pending Received 11/25/17 12:20 Urine Random Urine Urine Culture Pending Received Result Diagram: 11/25/17 1024 11/25/17 1024 Imaging Last Impressions Abdomen/Pelvis CT 11/25/17 1155 Signed Impressions: CONCLUSION: 1. 2 mm nonobstructing stone lower pole left kidney. 2. Mild nonspecific prominence of the left kidney with some decreased density along the mid pole. This may represent a focal inflammatory process such as nep hritis. This needs to be correlated with patient's physical, clinical exam and UA. 3. Mild dilatation of some small bowel loops with air and fluid. This is nonsp ecific and could represent a mild ileus. However, no mechanical obstruction is seen at this time. Head CT 11/25/17 1013 Signed Impressions: CONCLUSION: 1. Unremarkable CT brain examination. Chest X-Ray 11/25/17 1013 Signed Impressions: CONCLUSION: No acute intrathoracic disease. Stable examination. Septic Shock Reassessment Septic shock perfusion: reassessment completed Caprini VTE Risk Assessment Caprini VTE Risk Assessment: No/Low Risk (score <= 1) Caprini Risk Assessment Model Point Value = 1 Point Value = 2 Point Value = 3 Point Value = 5 Age 41-60 Minor surgery BMI > 25 kg/m2 Swollen legs Varicose veins or History of unexplained or recurrent spontaneous Oral contraceptives or hormone replacement Sepsis (< 1 month) Serious lung disease, including pneumonia (< 1 month) Abnormal pulmonary function Acute myocardial infarction Congestive heart failure (< 1 month) History of inflammatory bowel disease Medical patient at bed rest Age 61-74 Arthroscopic surgery Major open surgery (> 45 min) Laparoscopic surgery (> 45 min) Malignancy Confined to bed (> 72 hours) Immobilizing plaster cast Central venous access Age >= 75 History of VTE Family history of VTE Factor V Leiden Prothrombin [id number] Lupus anticoagulant Anticardiolipin antibodies Elevated serum homocysteine Heparin-induced thrombocytopenia Other congenital or acquired thrombophilia Stroke (< 1 month) Elective arthroplasty Hip, pelvis, or leg fracture Acute spinal cord injury (< 1 month) Prophylaxis Regimen Total Risk Factor Score Risk Level Prophylaxis Regimen 0-1 Low Early ambulation 2 Moderate Order ONE of the following: *Sequential Compression Device (SCD) *Heparin 5000 units SQ BID 3-4 Higher Order ONE of the following medications: *Heparin 5000 units SQ TID *Enoxaparin/Lovenox 40 mg SQ daily (WT < 150 kg, CrCl > 30 mL/min) *Enoxaparin/Lovenox 30 mg SQ daily (WT < 150 kg, CrCl > 10-29 mL/min) *Enoxaparin/Lovenox 30 mg SQ BID (WT < 150 kg, CrCl > 30 mL/min) AND/OR *Sequential Compression Device (SCD) 5 or more Highest Order ONE of the following medications: *Heparin 5000 units SQ TID (Preferred with Epidurals) *Enoxaparin/Lovenox 40 mg SQ daily (WT < 150 kg, CrCl > 30 mL/min) *Enoxaparin/Lovenox 30 mg SQ daily (WT < 150 kg, CrCl > 10-29 mL/min) *Enoxaparin/Lovenox 30 mg SQ BID (WT < 150 kg, CrCl > 30 mL/min) AND *Sequential Compression Device (SCD) Assessment and Plan Problem List: (1) Sepsis ICD Code: A41.9 - Sepsis, unspecified organism Status: Acute (2) Pyelonephritis ICD Code: N12 - Tubulo-interstitial nephritis, not specified as acute or chronic Status: Acute Assessment and Plan 42-year-old female with Sepsis: Temp > 100.9 or < 96.8, WBC > 83908, < 4000 or > 10% bands, Infect source susp/known(pyelonephritis) Status post Rocephin and Zosyn IV 1 in ED Monitor culture report Pyelonephritis CT abdomen noted and reviewed by me Study post Zosyn and Rocephin IV 1 in ED Will continue Rocephin 1 g IV daily Metabolic encephalopathy Improving Head CT noted and reviewed by me without any intracranial abnormality Polysubstance abuse Patient was counseled against Tobacco abuse Tobacco counseling cessation provided Patient declined nicotine patch DVT prophylaxis: Bilateral SCDs Code Status Full code Discussed Condition With Patient, ED physician Physician Certification 2 Midnight Certification Type: Admission for Inpatient Services Order for Inpatient Services The services are ordered in accordance with Medicare regulations or non- Medicare payer requirements, as applicable. In the case of services not specified as inpatient-only, they are appropriately provided as inpatient services in accordance with the 2-midnight benchmark. Estimated LOS (days): 2 days is the estimated time the patient will need to remain in the hospital, assuming treatment plan goals are met and no additional complications. Post-Hospital Plan: Not yet determined Problem Qualifiers (1) Sepsis: Qualified Codes: A41.9 - Sepsis, unspecified organism Jeremiah Lynn MD November 25, 2017 13:55
[2017-11-25] MEDS: SODIUM CHLOR 0.9% 1000 ML INJ 1,000 ML IV SCH (14:21)
[2017-11-25] MEDS: KETOROLAC TROMETHAMINE 10 MG TAB PO PRN (18:17)
[2017-11-25] MEDS: SODIUM CHLORIDE 0.9% FLUSH 10 ML FLUSH IV FLUSH SCH (19:58)
[2017-11-25] MEDS: LACTOBACILLUS ACIDOPHILUS TAB PO SCH (19:58)
[2017-11-26] VITALS: BP 118/78; PULSE 86; RESP 20; TEMP 98.9; O2SAT 100
[2017-11-26] MEDS: SODIUM CHLOR 0.9% 1000 ML INJ 1,000 ML IV SCH ×2 (00:35→10:17)
[2017-11-26] MEDS: KETOROLAC TROMETHAMINE 10 MG TAB PO PRN ×2 (00:36→06:42)
[2017-11-26 06:54] LABS: AUTOMATED NEUTROPHIL # 6.7 TH/MM3 (1.8-7.7); BASOPHIL # 0.1 TH/MM3 (0-0.2); BASOPHIL % 0.5 % (0.0-2.0); EOSINOPHIL # 0.2 TH/MM3 (0-0.4); EOSINOPHIL % 1.6 % (0.0-4.0); HEMATOCRIT 31.5 % (35.0-46.0); HEMOGLOBIN 10.5 GM/DL (11.6-15.3); LYMPH % 22.5 % (9.0-44.0); LYMPHOCYTE # 2.3 TH/MM3 (1.0-4.8); MEAN CELL VOLUME 95.2 FL (80.0-100.0); MEAN CORPUSCULAR HEMOGLOBIN 31.6 PG (27.0-34.0); MEAN CORPUSCULAR HGB CONC 33.2 % (32.0-36.0); MEAN PLATELET VOLUME 7.1 FL (7.0-11.0); MONO % 9.8 % (0.0-8.0); NEUT % 65.6 % (16.0-70.0); PLATELET COUNT 252 TH/MM3 (150-450); RED BLOOD COUNT 3.31 MIL/MM3 (4.00-5.30); RED CELL DISTRIBUTION WIDTH 12.4 % (11.6-17.2); WHITE BLOOD COUNT 10.3 TH/MM3 (4.0-11.0)
[2017-11-26 07:04] LABS: CHLORIDE 109 MEQ/L (98-107); SODIUM (NA) 141 MEQ/L (136-145)
[2017-11-26 07:08] LABS: CALCIUM 8.2 MG/DL (8.5-10.1)
[2017-11-26 07:09] LABS: ALBUMIN 2.4 GM/DL (3.4-5.0); BICARBONATE 27.8 MEQ/L (21.0-32.0); BLOOD UREA NITROGEN 9 MG/DL (7-18); GLUCOSE,RANDOM 89 MG/DL (74-106)
[2017-11-26 07:12] LABS: ALT (GPT) 23 U/L (10-53); AST (GOT) 19 U/L (15-37); CREATININE 0.55 MG/DL (0.50-1.00); GLOMERULAR FILTRATION RATE 122 ML/MIN (>89)
[2017-11-26 07:13] LABS: TOTAL BILIRUBIN ADULT 0.6 MG/DL (0.2-1.0); TOTAL PROTEIN 6.2 GM/DL (6.4-8.2)
[2017-11-26 07:15] LABS: ALKALINE PHOSPHATASE 80 U/L (45-117)
[2017-11-26] MEDS ORDERED: diphenhydrAMINE HCL 25 MG CAP PO PRN (07:30)
[2017-11-26 07:54] VITALS: BP 99/65; PULSE 94; RESP 18; TEMP 98.8; O2SAT 97
[2017-11-26] MEDS: SODIUM CHLORIDE 0.9% FLUSH 10 ML FLUSH IV FLUSH SCH (09:00)
[2017-11-26] MEDS ORDERED: cefTRIAXone INJ 1,000 MG in SODIUM CHLORIDE 0.9% INJ 100 ML IV SCH (09:00)
[2017-11-26] MEDS: LACTOBACILLUS ACIDOPHILUS TAB PO SCH (09:01)
--- NOTE | 2017-11-26 09:17 | HHI.PR ---
Subjective Remarks Follow-up sepsis/pyelonephritis November 26, 2017-patient seen and examined, afebrile over the past 8 hours. Patient is to continue to complain of flank pain. No nausea no vomiting. Alert and oriented 3 Objective Vitals Vital Signs Date Time Temp Pulse Resp B/P (MAP) Pulse Ox O2 Delivery O2 Flow Rate FiO2 11/26/17 07:54 98.8 94 18 99/65 (76) 97 11/26/17 00:00 98.9 86 20 118/78 (91) 100 11/25/17 20:00 98.1 87 20 108/69 (82) 98 11/25/17 18:34 101.5 111 19 121/77 (92) 100 11/25/17 15:00 89 16 107/70 (82) 98 11/25/17 13:35 90 17 103/71 (82) 97 Room Air 11/25/17 12:35 99.7 92 17 108/67 (81) 98 Room Air 11/25/17 12:00 99.4 60 16 104/61 (75) 100 11/25/17 11:27 Room Air 11/25/17 11:26 109 18 109/72 (84) 96 Room Air 11/25/17 11:21 103.0 109 18 111/73 (86) 97 Room Air 11/25/17 10:15 97 Room Air 11/25/17 10:02 103.0 110 18 90/56 (67) I/O 11/25/17 11/25/17 11/25/17 11/26/17 11/26/17 11/26/17 07:00 15:00 23:00 07:00 15:00 23:00 Intake Total 1530 ml 840 ml 2065 ml Balance 1530 ml 840 ml 2065 ml Intake Oral 840 ml 480 ml IV Total 1530 ml 1585 ml # Voids 4 1 # Bowel Movements 0 Result Diagram: 11/26/17 0638 11/26/17 0638 Imaging Last Impressions Abdomen/Pelvis CT 11/25/17 1155 Signed Impressions: CONCLUSION: 1. 2 mm nonobstructing stone lower pole left kidney. 2. Mild nonspecific prominence of the left kidney with some decreased density along the mid pole. This may represent a focal inflammatory process such as nep hritis. This needs to be correlated with patient's physical, clinical exam and UA. 3. Mild dilatation of some small bowel loops with air and fluid. This is nonsp ecific and could represent a mild ileus. However, no mechanical obstruction is seen at this time. Head CT 11/25/17 1013 Signed Impressions: CONCLUSION: 1. Unremarkable CT brain examination. Chest X-Ray 11/25/17 1013 Signed Impressions: CONCLUSION: No acute intrathoracic disease. Stable examination. Objective Remarks GENERAL: NAD SKIN: Warm and dry. HEAD: Normocephalic. EYES: No scleral icterus. No injection or drainage. NECK: Supple, trachea midline. No JVD or lymphadenopathy. CARDIOVASCULAR: Regular rate and rhythm without murmurs, gallops, or rubs. RESPIRATORY: Breath sounds equal bilaterally. No accessory muscle use. GASTROINTESTINAL: Abdomen soft, non-tender, nondistended. MUSCULOSKELETAL: No cyanosis, or edema. BACK: Nontender without obvious deformity. + CVA tenderness. A/P Problem List: (1) Sepsis ICD Code: A41.9 - Sepsis, unspecified organism Status: Acute (2) Pyelonephritis ICD Code: N12 - Tubulo-interstitial nephritis, not specified as acute or chronic Status: Acute Assessment and Plan 42-year-old female with Sepsis: Temp > 100.9 or < 96.8, WBC > 19276, < 4000 or > 10% bands, Infect source susp/known(pyelonephritis) Status post Rocephin and Zosyn IV 1 in ED Currently on Rocephin and monitor culture report Pyelonephritis CT abdomen noted and reviewed by me Status post Zosyn and Rocephin IV 1 in ED Continue Rocephin 1 g IV daily Metabolic encephalopathy Improved Head CT noted and reviewed by me without any intracranial abnormality Polysubstance abuse Patient was counseled against Tobacco abuse Tobacco counseling cessation provided Patient declined nicotine patch DVT prophylaxis: Bilateral SCDs Problem Qualifiers (1) Sepsis: Qualified Codes: A41.9 - Sepsis, unspecified organism Jeremiah Lynn MD November 26, 2017 09:17
[2017-11-26 11:17] VITALS: BP 114/68; PULSE 71; RESP 18; TEMP 98.5; O2SAT 99
[2017-11-26] MEDS ORDERED: KETOROLAC TROMETHAMINE 10 MG TAB PO PRN (11:30)
--- NOTE | 2017-11-26 12:46 | EKG ---
Date Performed: 11/25/2017 Time Performed: 12:50:03 PTAGE: 42 years EKG: Sinus rhythm WITH SHORT AL INTERVAL BORDERLINE LEFT AXIS DEVIATION VOLTAGE CRITERIA FOR LVH ABNORMAL ECG Compared to PREVIOUS TRACING , axis is more leftward, criteria for LVH is new on this tracing. PREVIO US TRACIN11/24/2017 02.48 DOCTOR: Severiano Shetty Interpretating Date/Time 11/26/2017 12:46:05
[2017-11-26 13:40] VITALS: BP 129/78; PULSE 92; RESP 18; TEMP 99.6; O2SAT 98
--- NOTE | 2017-11-27 08:10 | PD.AMA ---
Against Medical Advice Note Discharge Disposition: Against Medical Advice (Patient left AMA November 26, 2017) AMA Statement Patient Dee Dee Mcmullen has decided to leave the hospital against medical advice. This patient has the capacity to refuse care and understands the risks of leaving, including permanent disability and/or , and has had an opportunity to ask questions about her condition. The patient has been informed that she may return for care at any time, and follow up has been arranged/ advised. Jeremiah Lynn MD November 27, 2017 08:09
--- NOTE | 2017-11-27 08:14 | HHI.DS ---
Discharge Summary Admission Date November 25, 2017 at 13:14 Discharge Date: November 26, 2017 Admitting Diagnosis Sepsis. Pyelonephritis. Substance abuse. (1) Sepsis ICD Code: A41.9 - Sepsis, unspecified organism Status: Acute (2) Pyelonephritis ICD Code: N12 - Tubulo-interstitial nephritis, not specified as acute or chronic Status: Acute Procedures None Brief History - From Admission 42-year-old female with a history of polysubstance abuse presented to the ED for evaluation of multiple complaints including right-sided flank pain, neck pain, intractable emesis, dysuria. Patient reports initial generalized pain 4 days ago which is now mostly worse on her right flank area. She also reported subjective fever. Patient states she has been having dry heaves however denies any GI bleeds. Presentation, patient is febrile with elevated WBC CBC/BMP: 11/26/17 0638 11/26/17 0638 Significant Findings Laboratory Tests Test 11/25/17 10:24 11/25/17 10:35 11/25/17 12:20 11/26/17 06:38 White Blood Count 16.4 TH/MM3 (4.0-11.0) Mean Corpuscular Hemoglobin Concent 31.4 % (32.0-36.0) Neutrophils (%) (Auto) 76.7 % (16.0-70.0) Neutrophils # (Auto) 12.5 TH/MM3 (1.8-7.7) Monocytes # (Auto) 1.2 TH/MM3 (0-0.9) 1.0 TH/MM3 (0-0.9) Erythrocyte Sedimentation Rate 79 mm/hr (0-20) Activated Partial Thromboplast Time 33.3 SEC (24.3-30.1) Albumin 2.9 GM/DL (3.4-5.0) 2.4 GM/DL (3.4-5.0) Phosphorus Level 1.2 MG/DL (2.5-4.9) Sodium Level 135 MEQ/L (136-145) Troponin I LESS THAN 0.02 NG/ML C-Reactive Protein 14.10 MG/DL (0.00-0.30) Lipase 55 U/L (73-393) Urine Turbidity CLOUDY (CLEAR) Urine Protein 100 mg/dL (NEG-TRACE) Urine Occult Blood LARGE (NEG) Urine Nitrite POS (NEG) Urine Leukocyte Esterase MOD (NEG) Urine WBC INNUM /hpf (0-5) Urine WBC Clumps FEW (NONE) Urine Bacteria MANY /hpf (NONE) Urine Amphetamines Screen POS (NEG) Red Blood Count 3.31 MIL/MM3 (4.00-5.30) Hemoglobin 10.5 GM/DL (11.6-15.3) Hematocrit 31.5 % (35.0-46.0) Monocytes (%) (Auto) 9.8 % (0.0-8.0) Total Protein 6.2 GM/DL (6.4-8.2) Calcium Level 8.2 MG/DL (8.5-10.1) Chloride Level 109 MEQ/L (98-107) Anion Gap 4 MEQ/L (5-15) Imaging Last Impressions Abdomen/Pelvis CT 11/25/17 1155 Signed Impressions: CONCLUSION: 1. 2 mm nonobstructing stone lower pole left kidney. 2. Mild nonspecific prominence of the left kidney with some decreased density along the mid pole. This may represent a focal inflammatory process such as nep hritis. This needs to be correlated with patient's physical, clinical exam and UA. 3. Mild dilatation of some small bowel loops with air and fluid. This is nonsp ecific and could represent a mild ileus. However, no mechanical obstruction is seen at this time. Head CT 11/25/17 1013 Signed Impressions: CONCLUSION: 1. Unremarkable CT brain examination. Chest X-Ray 11/25/17 1013 Signed Impressions: CONCLUSION: No acute intrathoracic disease. Stable examination. PE at Discharge GENERAL: NAD SKIN: Warm and dry. HEAD: Normocephalic. EYES: No scleral icterus. No injection or drainage. NECK: Supple, trachea midline. No JVD or lymphadenopathy. CARDIOVASCULAR: Regular rate and rhythm without murmurs, gallops, or rubs. RESPIRATORY: Breath sounds equal bilaterally. No accessory muscle use. GASTROINTESTINAL: Abdomen soft, non-tender, nondistended. MUSCULOSKELETAL: No cyanosis, or edema. BACK: Nontender without obvious deformity. + CVA tenderness. Hospital Course Patient left AMA, however during her hospitalization she was treated with IV antibiotics for pyelonephritis with monitoring of culture. Pt Condition on Discharge: Good Discharge Disposition: Discharge Home Discharge Time: <= 30 minutes Jeremiah Lynn MD November 27, 2017 08:14
== END 2017-11-26 19:35 | disposition left against medical advice (07) | DRG 871 ==
LOC: PHED 09:55 → PHEDA 13:14 → PH3B 14:59
PROVIDERS: ADMIT Hospitalist; ATTEND Hospitalist
DX: A41.9 Sepsis, unspecified organism (principal); G93.41 Metabolic encephalopathy; N20.0 Calculus of kidney; I10 Essential (primary) hypertension; F14.10 Cocaine abuse, uncomplicated; F15.10 Other stimulant abuse, uncomplicated; F32.9 Major depressive disorder, single episode, unspecified; Z85.41 Personal history of malignant neoplasm of cervix uteri; K21.9 Gastro-esophageal reflux disease without esophagitis; F17.210 Nicotine dependence, cigarettes, uncomplicated; Z88.2 Allergy status to sulfonamides; Z88.6 Allergy status to analgesic agent; Z88.1 Allergy status to other antibiotic agents; Z86.14 Personal history of Methicillin resistant Staphylococcus aureus infection
CPT/HCPCS: 70450; 71045; 74177; 80053; 80307; 81001; 82550; 83605; 83690; 83735; 84100; 84443; 84484; 84702; 84703; 85025; 85610; 85652; 85730; 86140; 87040; 87077; 87086; 87186; 93005; 96361; 96365; 96368; J0696; J2543; J3370; J3480; J7030; J7050; Q9967

== ENCOUNTER 2017-11-28 17:23 | Emergency (ER) | payer MEDICARE, OTHER ==
[~2017-11-28] VITALS: Ht 157.5 cm; Wt 59.0 kg
[2017-11-28 17:28] VITALS: BP 124/74; PULSE 85; RESP 17; TEMP 98.3; O2SAT 100
[2017-11-28 17:40] LABS: BILIRUBIN, URINE NEG (NEG); BLOOD, URINE NEG (NEG); GLUCOSE,URINE NEG (NEG); KETONE, URINE NEG (NEG); NITRITE,URINE NEG (NEG); URINE COLOR YELLOW (YELLW/STRAW); URINE LEUKOCYTE ESTERASE NEG (NEG)
[2017-11-28 17:51] LABS: AMORPHOUS SEDIMENT, URINE FEW; SQUAMOUS EPITHELIAL CELL URINE 0-5 /hpf (0-5); WHITE BLOOD CELL CLUMPS FEW
[2017-11-28 19:23] VITALS: BP 113/52; PULSE 85; RESP 16; O2SAT 98
[2017-11-28 19:39] LABS: AUTOMATED NEUTROPHIL # 3.4 TH/MM3 (1.8-7.7); BASOPHIL # 0.1 TH/MM3 (0-0.2); BASOPHIL % 0.8 % (0.0-2.0); EOSINOPHIL # 0.4 TH/MM3 (0-0.4); EOSINOPHIL % 5.9 % (0.0-4.0); LYMPH % 32.8 % (9.0-44.0); LYMPHOCYTE # 2.3 TH/MM3 (1.0-4.8); MEAN CELL VOLUME 93.5 FL (80.0-100.0); MEAN CORPUSCULAR HEMOGLOBIN 32.1 PG (27.0-34.0); MEAN CORPUSCULAR HGB CONC 34.3 % (32.0-36.0); MEAN PLATELET VOLUME 6.5 FL (7.0-11.0); MONO % 12.4 % (0.0-8.0); MONOCYTE # 0.9 TH/MM3 (0-0.9); NEUT % 48.1 % (16.0-70.0); PLATELET COUNT 466 TH/MM3 (150-450); RED BLOOD COUNT 3.74 MIL/MM3 (4.00-5.30); RED CELL DISTRIBUTION WIDTH 12.4 % (11.6-17.2); WHITE BLOOD COUNT 7.1 TH/MM3 (4.0-11.0)
[2017-11-28 19:54] LABS: BICARBONATE 28.5 MEQ/L (21.0-32.0); CREATININE 0.63 MG/DL (0.50-1.00)
[2017-11-28] MEDS ORDERED: cefTRIAXone INJ 1,000 MG in SODIUM CHLORIDE 0.9% INJ 100 ML IV ONE (20:45)
[2017-11-28] MEDS ORDERED: SODIUM CHLOR 0.9% 1000 ML INJ 1,000 ML IV ONE (20:45)
[2017-11-28] MEDS ORDERED: ACETAMINOPHEN 500 MG CPLT PO ONE (20:45)
[2017-11-28] MEDS ORDERED: CEPH-460 PO (20:56)
--- NOTE | 2017-11-28 20:56 | PD ---
HPI Chief Complaint: Dizziness Time Seen by Provider: 19:17 Travel History International Travel<30 days: No Contact w/Intl Traveler<30days: No Traveled to known affect area: No History of Present Illness HPI This is a 42-year-old female who has a history of IV drug use who presents to the emergency department reporting that she is having back pain, malaise, nausea and headaches associated with dysuria. She was just discharged from the hospital yesterday and she reports she left AGAINST MEDICAL ADVICE. She was hospitalized in the setting of pyelonephritis. She says that she wishes she had stayed longer in the hospital because she is not feeling better and she has poor energy level. She also says that she left the house that she was in because they were using cocaine and she felt she might relapse on drugs if she stayed there. PFSH Past Medical History Asthma: No Anxiety: No Depression: Yes Heart Rhythm Problems: No Cancer: Yes (cervical ca) Cardiovascular Problems: Yes (HTN) High Cholesterol: No Chemotherapy: No Chest Pain: No Congestive Heart Failure: No COPD: No Diabetes: Yes Patient Takes Glucophage: No Diminished Hearing: No Endocrine: No Gastrointestinal Disorders: Yes (gerd) GERD: Yes Genitourinary: No Hepatitis: Yes (b and c) Hiatal Hernia: No Hypertension: Yes Immune Disorder: No Medical other: Yes (CHR. HEADACHES DUE TO TRAUMA r eye twitching with pain) Musculoskeletal: No Neurologic: No Psychiatric: No Reproductive: Yes (ENDOMETRIOSIS,FIBROIDS TUMOR) Respiratory: Yes (Asthma) Immunizations Current: No Radiation Therapy: No Sleep Apnea: No Thyroid Disease: No Tetanus Vaccination: < 5 Years ?: Unknown : 5 Para: 6 Ovarian Cysts: Yes (BEAN.) Dilation and Curettage (D&C): Yes (06/2012) Past Surgical History Abdominal Surgery: Yes (EX LAP) AICD: No Appendectomy: Yes Section: Yes Gynecologic Surgery: Yes (LAPAROSCOPIES. c section) Hysterectomy: Yes Joint Replacement: No Oral Surgery: Yes (T & A) Pacemaker: No Tonsillectomy: Yes Other Surgery: Yes (d&c,cervical ca, hysterectomy) Social History Alcohol Use: No Tobacco Use: Yes (07/06 ppd) Substance Use: Yes (ADDERALL, COCAINE, METH ) Allergies-Medications (Allergen,Severity, Reaction): Coded Allergies: Sulfa (Sulfonamide Antibiotics) (Unverified Allergy, Severe, BLEEDING, HIVES, 11/28/17) aspirin (Unverified Allergy, Severe, BLEEDING,HIVES, 11/28/17) diclofenac (Unverified Allergy, Severe, Bleeding, 11/28/17) doxycycline (Unverified Allergy, Severe, Nausea/Vomiting, 11/28/17) etodolac (Unverified Allergy, Severe, Bleeding, 11/28/17) flurbiprofen (Unverified Allergy, Severe, Bleeding, 11/28/17) ibuprofen (Unverified Allergy, Severe, Bleeding, 11/28/17) indomethacin (Unverified Allergy, Severe, Bleeding, 11/28/17) ketoprofen (Unverified Allergy, Severe, Bleeding, 11/28/17) naproxen (Unverified Allergy, Severe, Bleeding, 11/28/17) oxaprozin (Unverified Allergy, Severe, Bleeding, 11/28/17) *MDRO Multi-Drug Resistant Organism (Verified Adverse Reaction, Unknown, ) 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 Reported Meds & Prescriptions Reported Meds & Active Scripts Active No Active Prescriptions or Reported Medications Review of Systems Except as stated in HPI: all other systems reviewed are Neg Physical Exam Narrative GENERAL:Well appearing, no acute distress SKIN: Focused skin assessment warm and dry. HEAD: Atraumatic. Normocephalic. EYES: Pupils equal and round. No injection or drainage. ENT: Moist mucous membranes NECK: Trachea midline. CARDIOVASCULAR: Regular rate and rhythm. No murmur appreciated. RESPIRATORY: Clear to auscultation. Breath sounds equal bilaterally. GASTROINTESTINAL: Abdomen soft, non-tender, nondistended. : Bilateral CVA tenderness MUSCULOSKELETAL: No focal tenderness over the lower thoracic or lumbar vertebral bodies. NEUROLOGICAL: Awake and alert. No obvious cranial nerve deficits. Moving all extremities. PSYCHIATRIC: Appropriate mood and affect; insight and judgment normal. Data Data Last Documented VS Vital Signs Date Time Temp Pulse Resp B/P (MAP) Pulse Ox O2 Delivery O2 Flow Rate FiO2 11/28/17 19:23 Room Air 11/28/17 19:23 85 16 113/52 (72) 98 11/28/17 17:28 98.3 Orders Orders Urinalysis - C+S If Indicated (11/28/17 17:27) Ed Urine Pregnancytest Poc (11/28/17 17:27) Urine Culture (11/28/17 17:35) Complete Blood Count With Diff (11/28/17 19:19) Basic Metabolic Panel (Bmp) (11/28/17 19:19) Ceftriaxone Inj (Rocephin Inj) (11/28/17 20:45) Acetaminophen (Tylenol) (11/28/17 20:45) Sodium Chlor 0.9% 1000 Ml Inj (Ns 1000 M (11/28/17 20:45) Labs Laboratory Tests Test 11/28/17 17:35 11/28/17 19:36 Urine Collection Type CLEAN CATCH Urine Color YELLOW Urine Turbidity CLEAR Urine pH 6.0 Urine Specific [place] LESS/EQUAL 1.005 Urine Protein NEG mg/dL Urine Glucose (UA) NEG mg/dL Urine Ketones NEG mg/dL Urine Occult Blood NEG Urine Nitrite NEG Urine Bilirubin NEG Urine Urobilinogen 0.2 MG/DL Urine Leukocyte Esterase NEG Urine WBC 9-14 /hpf Urine WBC Clumps FEW Urine Squamous Epithelial Cells 0-5 /hpf Urine Amorphous Sediment FEW Microscopic Urinalysis Comment CULTURE INDICATED Urine Collection Time 1735 White Blood Count 7.1 TH/MM3 Red Blood Count 3.74 MIL/MM3 Hemoglobin 12.0 GM/DL Hematocrit 35.0 % Mean Corpuscular Volume 93.5 FL Mean Corpuscular Hemoglobin 32.1 PG Mean Corpuscular Hemoglobin Concent 34.3 % Red Cell Distribution Width 12.4 % Platelet Count 466 TH/MM3 Mean Platelet Volume 6.5 FL Neutrophils (%) (Auto) 48.1 % Lymphocytes (%) (Auto) 32.8 % Monocytes (%) (Auto) 12.4 % Eosinophils (%) (Auto) 5.9 % Basophils (%) (Auto) 0.8 % Neutrophils # (Auto) 3.4 TH/MM3 Lymphocytes # (Auto) 2.3 TH/MM3 Monocytes # (Auto) 0.9 TH/MM3 Eosinophils # (Auto) 0.4 TH/MM3 Basophils # (Auto) 0.1 TH/MM3 CBC Comment DIFF FINAL Differential Comment Blood Urea Nitrogen 8 MG/DL Creatinine 0.63 MG/DL Random Glucose 106 MG/DL Calcium Level 9.0 MG/DL Sodium Level 140 MEQ/L Potassium Level 3.2 MEQ/L Chloride Level 104 MEQ/L Carbon Dioxide Level 28.5 MEQ/L Anion Gap 8 MEQ/L Estimat Glomerular Filtration Rate 105 ML/MIN [facility] Medical Decision Making Medical Screen Exam Complete: Yes Emergency Medical Condition: Yes Interpretation(s) Afebrile, no tachycardia, normotensive No leukocytosis Mild hypokalemia Urinalysis demonstrates white blood cell clumps Blood cultures from 2 days ago are no growth Urine culture demonstrates E. coli Differential Diagnosis Urinary tract infection, pyelonephritis, endocarditis, osteomyelitis, epidural abscess Narrative Course This is a 42-year-old female who presents to the emergency department with generalized malaise, flank pain and nausea in the setting of recently diagnosed pyelonephritis. Today her labs are significantly improved from prior. Urinalysis continues to demonstrate some infection. Her urine culture from her prior visit grew E. coli which was sensitive to cephalosporins. She was given a dose of IV ceftriaxone and a liter of IV fluid. She otherwise is nontoxic appearing. Blood cultures from her previous hospitalization are no growth. Given evidence of persistent pyelonephritis to explain her symptoms I do not think further workup for epidural abscess or discitis is warranted at this time. I think she can safely be discharged home on oral antibiotic therapy. Diagnosis Primary Impression: Pyelonephritis Patient Instructions: General Instructions Additional Instructions: If you develop fever, persistent vomiting, back pain, or inability to eat return to the emergency department as your urine infection may have progressed to a kidney infection. Complete your antibiotics as prescribed. Stay well hydrated with Gatorade or water. Followup with your primary care physician in 2-3 days if your symptoms have not resolved. Med/Other Pt SpecificInfo: Prescription(s) given Scripts Cephalexin (Keflex) 500 Mg Cap 500 MG PO Q12H for Infection for 7 Days, #14 CAP 0 Refills Prov: Yasmeen Beard MD 11/28/17 Disposition: DISCHARGE HOME Condition: Stable Yasmeen Beard MD November 28, 2017 20:56
[2017-11-28 21:00] VITALS: BP 132/84; PULSE 75; RESP 16; TEMP 98.2; O2SAT 98
[2017-11-29 00:30] VITALS: BP 143/83; PULSE 57; RESP 17; O2SAT 100
[2017-11-29] MEDS ORDERED: ACETAMINOPHEN 325 MG TAB PO ONE ×2 (02:15→08:30)
[2017-11-29 05:33] VITALS: BP 114/70; PULSE 65; RESP 18; O2SAT 100
[2017-11-29 09:19] VITALS: BP 130/89; PULSE 76; RESP 18; O2SAT 98
[2017-11-29] MEDS ORDERED: CEPHALEXIN MONOHYDRATE 500 MG CAP PO ONE (09:30)
--- NOTE | 2017-11-29 09:46 | PD ---
Physical Exam Date Seen by Provider: November 29, 2017 Time Seen by Provider: 09:45 Narrative Patient has been cleared by psychiatric nurse practitioner and is up for discharge. I was asked to discharge the patient. The patient is complaining of a generalized headache that started last night, aching. She is given Tylenol 650 mg p.o. Patient was seen and evaluated for headache on November 25, 2017 and had a negative CT scan of the head. Patient is allergic to all anti- inflammatories. Patient is stable for discharge. Data Data Last Documented VS Vital Signs Date Time Temp Pulse Resp B/P (MAP) Pulse Ox O2 Delivery O2 Flow Rate FiO2 11/29/17 09:19 76 18 130/89 (103) 98 Room Air 11/28/17 21:00 98.2 Orders Orders Urinalysis - C+S If Indicated (11/28/17 17:27) Ed Urine Pregnancytest Poc (11/28/17 17:27) Urine Culture (11/28/17 17:35) Complete Blood Count With Diff (11/28/17 19:19) Basic Metabolic Panel (Bmp) (11/28/17 19:19) Ceftriaxone Inj (Rocephin Inj) (11/28/17 20:45) Acetaminophen (Tylenol) (11/28/17 20:45) Sodium Chlor 0.9% 1000 Ml Inj (Ns 1000 M (11/28/17 20:45) Psych Screen (11/28/17 21:51) Drug Screen, Random Urine (11/28/17 23:28) Acetaminophen (Tylenol) (11/29/17 02:15) Diet Regular Basic (11/29/17 Breakfast) Acetaminophen (Tylenol) (11/29/17 08:30) Cephalexin (Keflex) (11/29/17 09:30) Labs Laboratory Tests Test 11/28/17 17:35 11/28/17 19:36 11/28/17 23:30 Urine Collection Type CLEAN CATCH Urine Color YELLOW Urine Turbidity CLEAR Urine pH 6.0 Urine Specific [place] LESS/EQUAL 1.005 Urine Protein NEG mg/dL Urine Glucose (UA) NEG mg/dL Urine Ketones NEG mg/dL Urine Occult Blood NEG Urine Nitrite NEG Urine Bilirubin NEG Urine Urobilinogen 0.2 MG/DL Urine Leukocyte Esterase NEG Urine WBC 9-14 /hpf Urine WBC Clumps FEW Urine Squamous Epithelial Cells 0-5 /hpf Urine Amorphous Sediment FEW Microscopic Urinalysis Comment CULTURE INDICATED Urine Collection Time 1735 White Blood Count 7.1 TH/MM3 Red Blood Count 3.74 MIL/MM3 Hemoglobin 12.0 GM/DL Hematocrit 35.0 % Mean Corpuscular Volume 93.5 FL Mean Corpuscular Hemoglobin 32.1 PG Mean Corpuscular Hemoglobin Concent 34.3 % Red Cell Distribution Width 12.4 % Platelet Count 466 TH/MM3 Mean Platelet Volume 6.5 FL Neutrophils (%) (Auto) 48.1 % Lymphocytes (%) (Auto) 32.8 % Monocytes (%) (Auto) 12.4 % Eosinophils (%) (Auto) 5.9 % Basophils (%) (Auto) 0.8 % Neutrophils # (Auto) 3.4 TH/MM3 Lymphocytes # (Auto) 2.3 TH/MM3 Monocytes # (Auto) 0.9 TH/MM3 Eosinophils # (Auto) 0.4 TH/MM3 Basophils # (Auto) 0.1 TH/MM3 CBC Comment DIFF FINAL Differential Comment Blood Urea Nitrogen 8 MG/DL Creatinine 0.63 MG/DL Random Glucose 106 MG/DL Calcium Level 9.0 MG/DL Sodium Level 140 MEQ/L Potassium Level 3.2 MEQ/L Chloride Level 104 MEQ/L Carbon Dioxide Level 28.5 MEQ/L Anion Gap 8 MEQ/L Estimat Glomerular Filtration Rate 105 ML/MIN Urine Opiates Screen NEG Urine Barbiturates Screen NEG Urine Amphetamines Screen NEG Urine Benzodiazepines Screen NEG Urine Cocaine Screen POS Urine Cannabinoids Screen NEG MDM Supervised Visit with [place]: No Diagnosis Primary Impression: Pyelonephritis Additional Impression: Medical clearance for psychiatric admission Patient Instructions: General Instructions, Kidney Infection (ED) Departure Forms: Tests/Procedures Additional Instruction: If you develop fever, persistent vomiting, back pain, or inability to eat return to the emergency department as your urine infection may have progressed to a kidney infection. Complete your antibiotics as prescribed. Stay well hydrated with Gatorade or water. Followup with your primary care physician in 2-3 days if your symptoms have not resolved. Scripts Cephalexin (Keflex) 500 Mg Cap 500 MG PO Q12H for Infection for 7 Days, #14 CAP 0 Refills Prov: Yasmeen Beard MD 11/28/17 Disposition: 01 DISCHARGE HOME Condition: Stable Renetta Andre SHAHLA November 29, 2017 09:46
--- NOTE | 2017-11-29 09:46 | PD ---
History of Present Illness Chief Complaint: Dizziness Time Seen by Provider: 09:27 Travel History International Travel<30 Days: No Contact w/Intl Traveler<30days: No Known affected area: No Legal Status Legal Status: Voluntary History of Present Illness: This is a 42-year-old female who presents voluntarily to the emergency department for dizziness and a urinary tract infection. Patient is well-known to this facility and has been seen on multiple occasions for polysubstance abuse. Her last inpatient admission here was May 17, 2016. Her last inpatient admission at [facility] was June 2017. Reviewed electronic medical record, labs, discuss case with staff. Patient's toxicology screen is positive for cocaine. She was examined in her room and J pod with Juan Waller, employment evaluator/case manager present. Patient is awake, alert, and oriented 4. She is complaining of a headache at this point which is exacerbated by light. Her speech is clear, logical, and organized. Her mood is irritable as is her affect. There is no indication of internal stimulation nor thought blocking. I can elicit no delusional material. She denies being suicidal or homicidal, and denies experiencing auditory or visual hallucinations. She states that she had one attempted suicide that was "many years ago when I was young". Patient is currently homeless and has been going through some life stressors. She reports that she was previously treated for depression in 2002 after her baby from a defect. At that time she reports that she took antidepressants however she is not taking them for quite some time. She denies using any illicit substances and claims not to understand how the cocaine got into her system. She reports that she smokes 2 packs of cigarettes a day and rarely drinks alcohol. She does have family in the area but she reports that they are "less than supportive". There has apparently been a falling out with him. PFSH Past Medical History Asthma: No Anxiety: No Depression: Yes Heart Rhythm Problems: No Cancer: Yes (cervical ca) Cardiovascular Problems: Yes (HTN) High Cholesterol: No Chemotherapy: No Chest Pain: No Congestive Heart Failure: No COPD: No Diabetes: Yes Patient Takes Glucophage: No Diminished Hearing: No Endocrine: No Gastrointestinal Disorders: Yes (gerd) GERD: Yes Genitourinary: No Hepatitis: Yes (b and c) Hiatal Hernia: No Hypertension: Yes Immune Disorder: No Medical other: Yes (CHR. HEADACHES DUE TO TRAUMA r eye twitching with pain) Musculoskeletal: No Neurologic: No Psychiatric: No Reproductive: Yes (ENDOMETRIOSIS,FIBROIDS TUMOR) Respiratory: Yes (Asthma) Immunizations Current: No Radiation Therapy: No Sleep Apnea: No Thyroid Disease: No Tetanus Vaccination: < 5 Years ?: Unknown : 5 Para: 6 Ovarian Cysts: Yes (BEAN.) Dilation and Curettage (D&C): Yes (06/2012) Past Surgical History Abdominal Surgery: Yes (EX LAP) AICD: No Appendectomy: Yes Section: Yes Gynecologic Surgery: Yes (LAPAROSCOPIES. c section) Hysterectomy: Yes Joint Replacement: No Oral Surgery: Yes (T & A) Pacemaker: No Tonsillectomy: Yes Other Surgery: Yes (d&c,cervical ca, hysterectomy) Psychiatric History Psychiatric History History of depression due to the of a baby in 2002. Hx Psychiatric Treatment: REPORTS HX OF DEPRESSION. PER MEDICAL RECORDS, 1 PREVIOUS ADMISSION FOR DRUG INDUCED MOOD D/O History of Inpatient Treatment: Yes Guns or firearms in home: No Social History Patient reports being homeless. She states that she smokes have pack cigarettes per day rarely drinks alcohol and claims to have stopped using illicit substances although her toxicology screen is positive for cocaine. The emergency room doctor spoke with her sister who reported that the patient recently had her children taken away. Hx Alcohol Use: No Hx Tobacco Use: Yes (07/06 ppd) Hx Substance Use: Yes Substance Use Type: Crack, Amphetamines-Stimulants Other Substances Used: PATIENT DENIES USING DESPITE TESTING POSITIVE Hx of Substance Use Treatment: Yes Allergies-Medications (Allergen,Severity, Reaction): Coded Allergies: Sulfa (Sulfonamide Antibiotics) (Unverified Allergy, Severe, BLEEDING, HIVES, 11/28/17) aspirin (Unverified Allergy, Severe, BLEEDING,HIVES, 11/28/17) diclofenac (Unverified Allergy, Severe, Bleeding, 11/28/17) doxycycline (Unverified Allergy, Severe, Nausea/Vomiting, 11/28/17) etodolac (Unverified Allergy, Severe, Bleeding, 11/28/17) flurbiprofen (Unverified Allergy, Severe, Bleeding, 11/28/17) ibuprofen (Unverified Allergy, Severe, Bleeding, 11/28/17) indomethacin (Unverified Allergy, Severe, Bleeding, 11/28/17) ketoprofen (Unverified Allergy, Severe, Bleeding, 11/28/17) naproxen (Unverified Allergy, Severe, Bleeding, 11/28/17) oxaprozin (Unverified Allergy, Severe, Bleeding, 11/28/17) *MDRO Multi-Drug Resistant Organism (Verified Adverse Reaction, Unknown, ) 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 Reported Meds & Prescriptions Reported Meds & Active Scripts Active Keflex (Cephalexin) 500 Mg Cap 500 Mg PO Q12H 7 Days Review of Systems Genitourinary: COMPLAINS OF: Dysuria Except as stated in HPI: all other systems reviewed are Neg Mental Status Examination Appearance: Dirty, Disheveled Consciousness: Alert Orientation: x4 Motor Activity: Other (Lying on bed) Speech: Unremarkable Language: Adequate Fund of Knowledge: Adequate Attention and Concentration: Adequate Memory: Unremarkable Mood: Irritable Affect: Irritable Thought Process & Associations: Intact Thought Content: Appropriate Hallucination Type: None Delusion Type: None Suicidal Ideation: No Suicidal Plan: No Suicidal Intention: No Homicidal Ideation: No Homicidal Plan: No Homicidal Intention: No Insight: Fair Judgment: Impulsive MDM Medical Decision Making Medical Record Reviewed: Yes Assessment/Plan This is a 42-year-old female who reports voluntarily to this facility for UTI. Based on information provided to the medical provider a psych screen was ordered. Upon examination today I found patient in her room complaining of a headache. She recently was medicated with Tylenol. Patient is awake, alert, and oriented 4. Her speech is clear, logical, and organized. There is no indication of internal stimuli or thought blocking. Her mood is irritable as is her affect but this may well be due to her headache. She denies feeling suicidal, homicidal, experiencing auditory or visual hallucinations. Can elicit no delusional material. When asked if she knew why she was here she stated, "because my sister wanted me to have a psych eval again". Patient does admit to having an extensive poly-substance abuse history, as well as being treated for depression in 2002 after the loss of a baby due to a defect. She does admit to being stressed due to some life situations at present however , she insists that she is not suicidal and is future oriented as evidenced by her statements that she is attempting to regain custody of her children. Children are currently with her sister in [place]. She does not meet inpatient admission criteria at she seems to require detox more than anything. Juan Waller, employment evaluator/case manager is giving her information to follow-up at [facility] and assisting her with starting the process for inpatient detox. Patient will be advised to return to this facility should her condition worsen or become emergent. Orders Orders Urinalysis - C+S If Indicated (11/28/17 17:27) Ed Urine Pregnancytest Poc (11/28/17 17:27) Urine Culture (11/28/17 17:35) Complete Blood Count With Diff (11/28/17 19:19) Basic Metabolic Panel (Bmp) (11/28/17 19:19) Ceftriaxone Inj (Rocephin Inj) (11/28/17 20:45) Acetaminophen (Tylenol) (11/28/17 20:45) Sodium Chlor 0.9% 1000 Ml Inj (Ns 1000 M (11/28/17 20:45) Psych Screen (11/28/17 21:51) Drug Screen, Random Urine (11/28/17 23:28) Acetaminophen (Tylenol) (11/29/17 02:15) Diet Regular Basic (11/29/17 Breakfast) Acetaminophen (Tylenol) (11/29/17 08:30) Cephalexin (Keflex) (11/29/17 09:30) Results Vital Signs Date Time Temp Pulse Resp B/P (MAP) Pulse Ox O2 Delivery O2 Flow Rate FiO2 11/29/17 09:19 76 18 130/89 (103) 98 Room Air 11/29/17 05:33 65 18 114/70 (85) 100 Room Air 11/29/17 00:30 57 17 143/83 (103) 100 11/28/17 22:10 11/28/17 21:00 98.2 75 16 132/84 (100) 98 Room Air 11/28/17 19:23 Room Air 11/28/17 19:23 85 16 113/52 (72) 98 Room Air 11/28/17 17:28 98.3 85 17 124/74 (91) 100 Laboratory Tests Test 5/29/18 17:35 11/28/17 19:36 11/28/17 23:30 Urine Collection Type CLEAN CATCH Urine Color YELLOW Urine Turbidity CLEAR Urine pH 6.0 Urine Specific [place] LESS/EQUAL 1.005 Urine Protein NEG Urine Glucose (UA) NEG Urine Ketones NEG Urine Occult Blood NEG Urine Nitrite NEG Urine Bilirubin NEG Urine Urobilinogen 0.2 Urine Leukocyte Esterase NEG Urine WBC 9-14 Urine WBC Clumps FEW Urine Squamous Epithelial Cells 0-5 Urine Amorphous Sediment FEW Microscopic Urinalysis Comment CULTURE INDICATED Urine Collection Time 1735 White Blood Count 7.1 Red Blood Count 3.74 Hemoglobin 12.0 Hematocrit 35.0 Mean Corpuscular Volume 93.5 Mean Corpuscular Hemoglobin 32.1 Mean Corpuscular Hemoglobin Concent 34.3 Red Cell Distribution Width 12.4 Platelet Count 466 Mean Platelet Volume 6.5 Neutrophils (%) (Auto) 48.1 Lymphocytes (%) (Auto) 32.8 Monocytes (%) (Auto) 12.4 Eosinophils (%) (Auto) 5.9 Basophils (%) (Auto) 0.8 Neutrophils # (Auto) 3.4 Lymphocytes # (Auto) 2.3 Monocytes # (Auto) 0.9 Eosinophils # (Auto) 0.4 Basophils # (Auto) 0.1 CBC Comment DIFF FINAL Differential Comment Blood Urea Nitrogen 8 Creatinine 0.63 Random Glucose 106 Calcium Level 9.0 Sodium Level 140 Potassium Level 3.2 Chloride Level 104 Carbon Dioxide Level 28.5 Anion Gap 8 Estimat Glomerular Filtration Rate 105 Urine Opiates Screen NEG Urine Barbiturates Screen NEG Urine Amphetamines Screen NEG Urine Benzodiazepines Screen NEG Urine Cocaine Screen POS Urine Cannabinoids Screen NEG Date/Time Source Procedure Growth Status 11/28/17 17:35 Urine Clean Catch Urine Culture Pending Worksheet Diagnosis Primary Impression: Pyelonephritis Additional Impression: Cocaine abuse, uncomplicated Psychiatrically Cleared: Yes Referrals: [facility] (Out patient) Departure Forms: Tests/Procedures Patient Instructions: General Instructions, Kidney Infection (ED) Additional Instructions: If you develop fever, persistent vomiting, back pain, or inability to eat return to the emergency department as your urine infection may have progressed to a kidney infection. Complete your antibiotics as prescribed. Stay well hydrated with Gatorade or water. Followup with your primary care physician in 2-3 days if your symptoms have not resolved. Prescriptions Cephalexin (Keflex) 500 Mg Cap 500 MG PO Q12H for Infection for 7 Days, #14 CAP 0 Refills Prov: Yasmeen Beard MD 11/28/17 Disposition: 01 DISCHARGE HOME Condition: Stable Problem Qualifiers Charisse Mendoza November 29, 2017 09:46
[2017-11-29 12:03] VITALS: BP 114/64; TEMP 98.1
== END 2017-11-29 12:03 | disposition home or self-care (01) ==
LOC: PHED 17:23 → NEPJ 11-29 12:03
DX: N12 Tubulo-interstitial nephritis, not specified as acute or chronic (principal); F14.10 Cocaine abuse, uncomplicated; F17.210 Nicotine dependence, cigarettes, uncomplicated
CPT/HCPCS: 80048; 80307; 81001; 84703; 85025; 87086; 96365; 99284; J0696; J7030